=== PATIENT | female | born 1955 | race African-American/Black ===

== ENCOUNTER 2017-01-26 10:08 | Emergency (ER) | payer OTHER ==
[~2017-01-26] VITALS: Ht 162.6 cm; Wt 51.7 kg
[~2017-01-26 10:08] MED LIST: AGGRENOX 25 MG1 EACH PO; ATORVASTATIN CA10 M1 PO; ATORVASTATIN CA80 M1 PO; EPCLUSA 400 MG1 EACH PO; LIPITOR40 M1 PO; LISINOPRIL40 M1 PO; SERTRALINE HCL50 MG PO
--- NOTE | 2017-01-26 10:12 | ED MVC/FALL/TRAUMA COMPLAINT ---
History of Present Illness General Chief Complaint: Fall Stated Complaint: BIBA FALL Source: patient, family, old records, EMS Exam Limitations: no limitations Vital Signs & Intake/Output Vital Signs & Intake/Output Vital Signs Date Time Temp Pulse Resp B/P B/P Pulse O2 O2 Flow FiO2 Mean Ox Delivery Rate 01/26 1219 81 18 155/86 98 Room Air 01/26 1015 98.2 102 18 159/93 97 Room Air Allergies Coded Allergies: NO KNOWN ALLERGIES (08/22/16) Triage Nurses Notes Reviewed? yes Onset: Abrupt Duration: hour(s): (1), constant Timing: recent history Severity: mild Severity Numbers: 1 Injuries/Fall Location: no injury Method of Injury: fall Loss of Consciousness: no loss of consciousness No Modifying Factors: none Associated Symptoms: denies HPI: 61-year-old female presents to the ER for evaluation brought in by ambulance with her daughters after she was found on the ground in her kitchen. The patient states that just happens. She denies any prodromal dizziness lightheadedness prior to the fall on arrival the patient denies any complaints no chest pain abdominal pain or murmur leg injury however she has bruising noted to the left hip. She denies pain to her leg. Patient has a history of frequent falls and is noted that she was not using her cane while ambulating today. She is otherwise without any complaints. (JENNY SAMSON) Reconcile Medications Atorvastatin Calcium (Lipitor) 40 MG TABLET 1 TAB PO DAILY cholestrol Dipyridamole W/ Aspirin (Aggrenox 25 MG-200 MG Capsule) 25 MG-200 MG CPMP.12HR 1 CAP PO BID HEART HEALTH (Reported) Lisinopril 40 MG TABLET 1 TAB PO DAILY HTN (Reported) Sertraline HCl 50 MG TABLET 1 TAB PO DAILY MENTAL HEALTH (Reported) Sofosbuvir/Velpatasvir (Epclusa 400 MG-100 MG Tablet) 400 MG-100 MG TABLET 1 TAB PO QPM HCV (Reported) (QUINN MORRIS DO) Past History Travel History Traveled to [place] past 21 day No Medical History Any Pertinent Medical History? see below for history Neurological: CVA 2000, 2010 major ones multiple CVAs in between 2000 and 2010 EENT: NONE Cardiovascular: hypertension, hyperlipidemia Respiratory: NONE Gastrointestinal: NONE Hepatic: hepatitis C Renal: NONE Musculoskeletal: NONE Psychiatric: NONE Endocrine: NONE Blood Disorders: NONE Cancer(s): NONE TAX ECONOMIST/Reproductive: NONE History of MRSA: No History of VRE: No History of CDIFF: No Pneumonia Vaccine: 08/27/16 Influenza Vaccine: 08/27/16 Surgical History Surgical History: none Psychosocial History Who do you live with Family What is your primary language German Family History Hx Contributory? No (JENNY SAMSON) Review of Systems Review of Systems Constitutional: Reports: see HPI. All Other Systems: Reviewed and Negative Comments Review of systems: See HPI, All other systems negative. Constitutional, no chills no fever, no malaise no weight loss HEENT: No visual changes no sore throat no congestion, no ear pain Cardiovascular: No chest pain , no palpitation , Skin: no rashes, no change in skin Respiratory: No dyspnea no cough no sputum GI: No nausea no vomiting, no diarrhea, no bloating/constipation : No dysuria No hematuria, no frequency, no discharge Muscle skeletal: No joint pain, no joint swelling, no back pain, no neck pain, Neurologic: no headache Psych: No stress Heme/endocrine: No bruising no bleeding Immunology: No lymphadenopathy (JENNY SAMSON) Physical Exam Physical Exam General Appearance: well developed/nourished, alert, awake Comments: Well-developed well-nourished person in no acute distress HEENT: Normal EENT exam; PERRL, EOMI, no nystagmus. HEAD is atraumatic. moist mucous membranes. Neck: Supple, normal range of motion without pain or tenderness Back: Nontender, no CVA tenderness. Full range of motion Cardiovascular: Regular rate and rhythms no murmurs rubs or gallops, normal JVP Respiratory: Chest nontender.There were no bony deformities, no asymmetry. No respiratory distress. Patient speaking in full complete sentences. Breath sounds clear to auscultation bilaterally: NO W/R/R Abdomen: Soft, nontender nondistended, no appreciable organomegaly. Normal bowel sounds. No rebound/guarding, No appreciable enlargement of the abdominal aorta, No ascites. UPPER Extremity: No edema, full range of motion of extremities, normal and equal pulses bilaterally, 5 out of 5 extremities Hip: mild ecchymosis noted to the lateral L hip, nontender, Stable. FROM. No pain with pelvic compression Knee: Atraumatic/stable. FROM. No joint swelling, no effusion. No laxity. Negative sudeep/anterior drawer test. No pain with ROM Leg: Atraumatic. Nontender. No edema, 5 out of 5 strength in the lower extremity, normal dorsiflexion of great toe bilaterally, gross sensation is intact Ankle/Foot: Atraumatic/stable. Skin intact. FROM. No swelling, no effusion. No laxity on exam Pulses: Normal/equal DP/PT pulses bilaterally. Brisk cap refill Neuro: Alert oriented x3, motor sensory normal, cranial nerves II through XII grossly intact. There were no obvious focal neurologic abnormalities. Skin: No appreciable rash on exposed skin, skin is warm and dry. Psych: Mood and affect is normal, memory and judgment is normal. Core Measures ACS in differential dx? Yes Severe Sepsis Present: No Septic Shock Present: No (EDWARD LUJAN,JENNY) Progress Differential Diagnosis: C/T/L spine injury, ext injury, ICH, pelvis injury, spinal cord injury, uti, electrolyte abnormality Plan of Care: Orders Procedure Date/time Status Straight Cath 01/26 1241 Active CULTURE,URINE 01/26 1241 Active URINALYSIS 01/26 1021 Complete TROPONIN LEVEL 01/26 1021 Complete COMPREHENSIVE METABOLIC PANEL 01/26 1021 Complete CREATINE PHOSPHOKINASE 01/26 1021 Complete CBC WITHOUT DIFFERENTIAL 01/26 1021 Complete EKG 01/26 1021 Active Laboratory Tests 01/26/17 1251: Urine Color YEL, Urine Clarity CLEAR, Urine pH 6.5, Ur Specific [place] 1.015, Urine Protein 30 H, Urine Ketones NEG, Urine Nitrite NEG, Urine Bilirubin NEG, Urine Urobilinogen 0.2, Ur Leukocyte Esterase NEG, Ur Microscopic SEDIMENT EXAMINED, Urine RBC 1-3, Urine WBC RARE, Ur Epithelial Cells RARE, Urine Bacteria RARE H, Urine Mucus RARE, Urine Hemoglobin SMALL H, Urine Glucose NEG 01/26/17 1034: Anion Gap 13, Estimated GFR > 60, BUN/Creatinine Ratio 18.8, Glucose 118 H, Calcium 9.4, Total Bilirubin 0.5, AST 38 H, ALT 33, Alkaline Phosphatase 59, Creatine Kinase 874 H, Troponin I 0.04, Total Protein 7.4, Albumin 4.1, Globulin 3.3, Albumin/Globulin Ratio 1.2, CBC w Diff NO MAN DIFF REQ, RBC 3.84 L, MCV 91.4, MCH 30.5, RDW 14.0, MPV 8.3, Gran % 85.5 H, Lymphocytes % 8.5 L, Monocytes % 5.6, Eosinophils % 0.1, Basophils % 0.3, Absolute Granulocytes 7.5 H, Absolute Lymphocytes 0.7 L, Absolute Monocytes 0.5, Absolute Eosinophils 0, Absolute Basophils 0, PUBS MCHC 33.4 Microbiology 01/26 1251 URINE ROUT: Urine Culture - RECD Patient denies any complaints at this time resting comfortably CAT scans ordered case discussed with Dr. morris who agrees with plan Discussed with the patient and her family her CAT scan results, she is ambulatory with a walker here with steady gait feels well, the patient was seen and evaluated by dr morris who agrees with plan I discussed with the patient at length all of their results. I had an extensive conversation regarding need for close follow up with their primary care physician this week as well as return precautions. I answered all of their questions, they feel comfortable with the plan and follow-up care. I discussed the medications that they will receive with the patient. I gave them signs and symptoms that could indicate an adverse reaction. I have advised them to limit their activities until they can see how they respond to the medication. (EDWARD LUJAN,JENNY) Diagnostic Imaging: Viewed by Me: CT Scan. Discussed w/RAD: CT Scan. Radiology Impression: PATIENT: RG GAONA PRESENT AGE: 61 PATIENT ACCOUNT NO: [id number] : 54 LOCATION: [facility] ORDERING PHYSICIAN: JENNY LUJAN SERVICE DATE: 01/26/17 EXAM TYPE: CAT - CT ABD & PELVIS W/O IV CONTRAS; CT CHEST WO IV CONTRAST EXAMINATION: CT CHEST, ABDOMEN AND PELVIS WITHOUT IV CONTRAST CLINICAL INFORMATION: Trauma COMPARISON: Previous chest x-ray August 2016. TECHNIQUE: Axial images through the chest, abdomen and pelvis without IV contrast obtained. Sagittal and coronal reconstructions on the technologist's workstation were obtained. DLP: 307 mGy- cm. FINDINGS: CHEST: The lungs are clear. There is no pleural effusion or pneumothorax. No enlarged lymph nodes are seen. The heart does not appear enlarged. There is a small pericardial effusion. The thoracic aorta is normal in caliber. No chest wall mass or axillary adenopathy is seen. Evaluation of solid organs is limited due to lack of IV contrast. The liver, spleen, pancreas, adrenal glands and right kidney are unremarkable. There is a small left lower pole renal stone measuring 1 to 2 mm. There is stool throughout the colon. There is evidence of diverticulosis. Small and large bowel is otherwise unremarkable. The appendix is normal. The bladder is normal. The uterus appears enlarged. No ascites or free air is seen. No adenopathy is seen. The abdominal aorta is normal in caliber. No hernia is seen. No fracture or dislocation is seen. The bones appear osteopenic. IMPRESSION: Limited exam due to lack of IV contrast. No evidence for acute disease in the chest, abdomen or pelvis. Small left renal stone. Diverticulosis. Enlarged uterus. This could be better evaluated with pelvic ultrasound. DICTATED BY: EPHRAIM LANDIN MD. DATE/TIME DICTATED:01/26/171148 LANDSCAPE DESIGNER:FRANSISCO DATE/TIME TRANSCRIBED:01/26/171148 CONFIDENTIAL, DO NOT COPY WITHOUT APPROPRIATE AUTHORIZATION. <Electronically signed in Other Vendor System> SIGNED BY: EPHRAIM LANDIN MD 01/26/17 1210 , PATIENT: RG GAONA PRESENT AGE: 61 PATIENT ACCOUNT NO: [id number] : 54 LOCATION: [facility] ORDERING PHYSICIAN: JENNY LUJAN SERVICE DATE: 01/26/17 EXAM TYPE: CAT - CT CERV SPINE WO IV CONTRAST EXAMINATION: CT CERVICAL SPINE WITHOUT CONTRAST CLINICAL INFORMATION: Fall. Trauma. COMPARISON: None. TECHNIQUE: Axial images through the cervical spine without contrast. Sagittal and coronal reconstructions on the technologist workstation were performed. DLP: 868 mGy-cm for combined CT of the head and cervical spine. FINDINGS: There is curvature of the lower cervical spine to the left. Bone alignment is otherwise normal. No fracture or dislocation is seen. There is multilevel degenerative spondylosis and degenerative disc disease from C3-C4 to C6-C7. There is heterogeneous attenuation to the bones with multiple lucent areas, probably representing osteopenia. Prevertebral soft tissues are normal. There is right carotid calcification. IMPRESSION: No fracture or dislocation seen. Multilevel degenerative spondylosis and degenerative disc disease from C3-C4 to C6-C7. DICTATED BY: EPHRAIM LANDIN MD DATE/TIME DICTATED :01/26/171154 LANDSCAPE DESIGNER:JUNIOR DATE/TIME TRANSCRIBED:01/26/171154 CONFIDENTIAL, DO NOT COPY WITHOUT APPROPRIATE AUTHORIZATION. < Electronically signed in Other Vendor System> SIGNED BY: EPHRAIM LANDIN MD 01/26/17 1210, PATIENT: RG GAONA PRESENT AGE: 61 PATIENT ACCOUNT NO: [id number] : 54 LOCATION: [facility] ORDERING PHYSICIAN: JENNY LUJAN SERVICE DATE: 01/26/17 EXAM TYPE: CAT - CT HEAD WO IV CONTRAST EXAMINATION: CT HEAD WITHOUT CONTRAST CLINICAL INFORMATION: Trauma. Evaluate for intracranial hemorrhage. COMPARISON: CT scan of the head dated 07/2016. MRI scan of the head dated 08/23/2016. TECHNIQUE: Contiguous axial imaging was performed from the skull base to vertex without intravenous administration of contrast. DLP: 868.44 mGy-cm this includes the dose report for the cervical spine CT scan. FINDINGS: There is no evidence of acute intracranial hemorrhage or territorial infarction. No abnormal mass effect or midline shift is seen. Izquierdo to white matter differentiation is well preserved. No extra-axial fluid collections are identified. The ventricles and sulci are mildly increased in size, consistent with involutional changes. As seen previously, there is extensive periventricular deep white matter low-attenuation seen, consistent with ischemic small vessel disease. Superimposed multifocal small old lacunar infarctions are seen, involving both basal ganglia, thalami, centra semiovale. The osseous structures and soft tissues are normal. The mastoid air cells and visualized portions of the paranasal sinuses are well aerated. IMPRESSION: 1. No evidence of acute intracranial hemorrhage or other acute intracranial process. 2. Extensive periventricular deep white matter ischemic small vessel disease and multifocal bilateral old lacunar infarctions, unchanged from prior study. DICTATED BY: SAMM SOW MD DATE/TIME DICTATED:01/26/171148 LANDSCAPE DESIGNER:FRANSISCO DATE/TIME TRANSCRIBED:01/26/171148 CONFIDENTIAL, DO NOT COPY WITHOUT APPROPRIATE AUTHORIZATION. <Electronically signed in Other Vendor System> SIGNED BY: SAMM SOW MD 01/26/17 121 Initial ED EKG: NSR AT 90, NO ACUTE ST SEG CHANGES, NORMAL AXIS Prior EKG: unchanged (08/2016) (EDWARD LUJAN,JENNY) Departure Departure Time of Disposition: 1333 Disposition: HOME OR SELF CARE Condition: Stable Clinical Impression Primary Impression: Fall Referrals: TULIO PEARCE APRN (PCP/Family) Additional Instructions: USE YOUR WALKER OR CANE WHENEVER YOU ARE MOVING AROUND. FOLLOW UP WITH YOUR PMD THIS WEEK, RETURN TO THE ER WITH ANY CONCERNS Departure Forms: Customer Survey General Discharge Information (JENNY SAMSON) PA/CLINICAL SYSTEMS ANALYST Co-Sign Statement Statement: ED Attending supervision documentation- [x] I saw and evaluated the patient. I have also reviewed all the pertinent lab results and diagnostic results. I agree with the findings and the plan of care as documented in the PA's/CLINICAL SYSTEMS ANALYST's documentation. [] I have reviewed the ED Record and agree with the PA's/CLINICAL SYSTEMS ANALYST's documentation. [] Additions or exceptions (if any) to the PAs/CLINICAL SYSTEMS ANALYST's note and plan are summarized below: [] (QUINN MORRIS DO
[2017-01-26 10:54] LABS: ABSOLUTE BASOPHIL COUNT 0 /CUMM (0.0-0.2); ABSOLUTE EOSINOPHIL COUNT 0 /CUMM (0.0-0.7); ABSOLUTE GRANULOCYTE CT 7.5 /CUMM (1.4-6.5); ABSOLUTE LYMPH COUNT 0.7 /CUMM (1.2-3.4); ABSOLUTE MONOCYTE COUNT 0.5 /CUMM (0.10-0.60); BASOPHIL % 0.3 % (0.0-2.0); EOSINOPHIL % 0.1 % (0-5); HEMATOCRIT 35.2 % (37-47); MEAN CORPUSCULAR HGB 30.5 PG (27.0-31.0); MEAN CORPUSCULAR HGB CONC 33.4 G/DL (33.0-37.0); MEAN CORPUSCULAR VOLUME 91.4 FL (81.0-99.0); MEAN PLATELET VOLUME 8.3 FL (7.4-10.4); PLATELET COUNT 243 /CUMM (130-400); RED BLOOD CELL CT 3.84 /CUMM (4.20-5.40); WHITE BLOOD CELL COUNT 8.8 /CUMM (4.8-10.8)
[2017-01-26 11:13] LABS: GRANULOCYTE % 85.5 % (42.2-75.2)
--- NOTE | 2017-01-26 12:10 | CT SCAN REPORT ---
EXAMINATION: CT CERVICAL SPINE WITHOUT CONTRAST CLINICAL INFORMATION: Fall. Trauma. COMPARISON: None. TECHNIQUE: Axial images through the cervical spine without contrast. Sagittal and coronal reconstructions on the technologist workstation were performed. DLP: 868 mGy-cm for combined CT of the head and cervical spine. FINDINGS: There is curvature of the lower cervical spine to the left. Bone alignment is otherwise normal. No fracture or dislocation is seen. There is multilevel degenerative spondylosis and degenerative disc disease from C3-C4 to C6-C7. There is heterogeneous attenuation to the bones with multiple lucent areas, probably representing osteopenia. Prevertebral soft tissues are normal. There is right carotid calcification. IMPRESSION: No fracture or dislocation seen. Multilevel degenerative spondylosis and degenerative disc disease from C3-C4 to C6-C7.
--- NOTE | 2017-01-26 12:10 | CT SCAN REPORT ---
EXAMINATION: CT CHEST, ABDOMEN AND PELVIS WITHOUT IV CONTRAST CLINICAL INFORMATION: Trauma COMPARISON: Previous chest x-ray August 2016. TECHNIQUE: Axial images through the chest, abdomen and pelvis without IV contrast obtained. Sagittal and coronal reconstructions on the technologist's workstation were obtained. DLP: 307 mGy-cm. FINDINGS: CHEST: The lungs are clear. There is no pleural effusion or pneumothorax. No enlarged lymph nodes are seen. The heart does not appear enlarged. There is a small pericardial effusion. The thoracic aorta is normal in caliber. No chest wall mass or axillary adenopathy is seen. Evaluation of solid organs is limited due to lack of IV contrast. The liver, spleen, pancreas, adrenal glands and right kidney are unremarkable. There is a small left lower pole renal stone measuring 1 to 2 mm. There is stool throughout the colon. There is evidence of diverticulosis. Small and large bowel is otherwise unremarkable. The appendix is normal. The bladder is normal. The uterus appears enlarged. No ascites or free air is seen. No adenopathy is seen. The abdominal aorta is normal in caliber. No hernia is seen. No fracture or dislocation is seen. The bones appear osteopenic. IMPRESSION: Limited exam due to lack of IV contrast. No evidence for acute disease in the chest, abdomen or pelvis. Small left renal stone. Diverticulosis. Enlarged uterus. This could be better evaluated with pelvic ultrasound.
--- NOTE | 2017-01-26 12:13 | CT SCAN REPORT ---
EXAMINATION: CT HEAD WITHOUT CONTRAST CLINICAL INFORMATION: Trauma. Evaluate for intracranial hemorrhage. COMPARISON: CT scan of the head dated 08/22/2016. MRI scan of the head dated 08/23/2016. TECHNIQUE: Contiguous axial imaging was performed from the skull base to vertex without intravenous administration of contrast. DLP: 868.44 mGy-cm this includes the dose report for the cervical spine CT scan. FINDINGS: There is no evidence of acute intracranial hemorrhage or territorial infarction. No abnormal mass effect or midline shift is seen. Izquierdo to white matter differentiation is well preserved. No extra-axial fluid collections are identified. The ventricles and sulci are mildly increased in size, consistent with involutional changes. As seen previously, there is extensive periventricular deep white matter low-attenuation seen, consistent with ischemic small vessel disease. Superimposed multifocal small old lacunar infarctions are seen, involving both basal ganglia, thalami, centra semiovale. The osseous structures and soft tissues are normal. The mastoid air cells and visualized portions of the paranasal sinuses are well aerated. IMPRESSION: 1. No evidence of acute intracranial hemorrhage or other acute intracranial process. 2. Extensive periventricular deep white matter ischemic small vessel disease and multifocal bilateral old lacunar infarctions, unchanged from prior study.
[2017-01-26 12:19] VITALS: BP 155/86
== END 2017-01-26 13:52 ==
LOC: ERH 10:08
PROVIDERS: Physician Assistant Medical
DX: Z04.3 Encounter for examination and observation following other accident (principal); I10 Essential (primary) hypertension; W19.XXXA Unspecified fall, initial encounter; Y93.9 Activity, unspecified; Y92.000 Kitchen of unspecified non-institutional (private) residence as the place of occurrence of the external cause
CPT/HCPCS: 74176; 81001; 87086; 93005; 93010

== ENCOUNTER 2017-12-27 14:27 | Emergency (ER) | payer OTHER ==
--- NOTE | 2017-12-27 14:43 | ED MVC/FALL/TRAUMA COMPLAINT ---
See Addendum History of Present Illness General Chief Complaint: Fall Stated Complaint: UNWITNESSED FALL IN BR Source: patient Exam Limitations: no limitations Vital Signs & Intake/Output Vital Signs & Intake/Output Vital Signs Date Time Temp Pulse Resp B/P B/P Pulse O2 O2 Flow FiO2 Mean Ox Delivery Rate 12/27 1832 Room Air 12/27 1700 79 18 188/88 99 Room Air 12/27 1428 98.6 98 18 162/98 99 Room Air Allergies Coded Allergies: NO KNOWN ALLERGIES (08/22/16) Reconcile Medications Atorvastatin Calcium (Lipitor) 40 MG TABLET 1 TAB PO DAILY cholestrol Dipyridamole W/ Aspirin (Aggrenox 25 MG-200 MG Capsule) 25 MG-200 MG CPMP.12HR 1 CAP PO BID HEART HEALTH (Reported) Lisinopril 40 MG TABLET 1 TAB PO DAILY HTN (Reported) Sertraline HCl 50 MG TABLET 1 TAB PO DAILY MENTAL HEALTH (Reported) Sofosbuvir/Velpatasvir (Epclusa 400 MG-100 MG Tablet) 400 MG-100 MG TABLET 1 TAB PO QPM HCV (Reported) Triage Note: PT BIBA FROM HOME AFTER SHE FELL IN THE BATHROOM. PT HAD UNWITNESSED FALL WHILE IN THE BR. PT DENIES PAIN. PT HAD CVA WITH LEFT SIDED WEAKNESS. FAMILY AT BEDSIDE NO DISTRESS NOTED. PT WAITING FOR PROVIDER EVAL Triage Nurses Notes Reviewed? yes Onset: Just prior to arrival Duration: minute(s): Timing: remote history Severity: mild Injuries/Fall Location: ?HEAD STRIKE Method of Injury: fall Loss of Consciousness: unsure No Modifying Factors: none HPI: Patient is a 62-year-old female with history of recent CVA, on Aggrenox presenting with family members with chief complaint of fall the bathroom prior to arrival. fall was unwitnessed. Patient reports that she was in the bathroom. Family reports that she left for a few minutes and then the granddaughter found her on the ground in the bathroom. Unsure exactly how she fell. Family reports that she was on the floor for less than 10 minutes. Patient denies any pain. No chest pain or palpitations. Patient denying any headaches. Denies any vision changes. Patient denies abdominal pain. (Lori LUJAN,Taylor) Past History Travel History Traveled to [place] past 21 day No Medical History Any Pertinent Medical History? see below for history Neurological: CVA 2000, 2010 major ones multiple CVAs in between 2000 and 2010 EENT: NONE Cardiovascular: hypertension, hyperlipidemia Respiratory: NONE Gastrointestinal: NONE Hepatic: hepatitis C Renal: NONE Musculoskeletal: NONE Psychiatric: NONE Endocrine: NONE Blood Disorders: NONE Cancer(s): NONE PRODUCT SAFETY SPECIALIST/Reproductive: NONE History of MRSA: No History of VRE: No History of CDIFF: No Surgical History Surgical History: none Psychosocial History Who do you live with Family What is your primary language Polish Tobacco Use: Never used ETOH Use: denies use Illicit Drug Use: denies illicit drug use Family History Hx Contributory? No (Taylor Knowles) Review of Systems Review of Systems Constitutional: Reports: no symptoms. Comments Review of systems: See HPI, All other systems negative. Constitutional, no chills fever or weight loss HEENT: No visual changes no sore throat no congestion Cardiovascular: No chest pain ,palpitation , orthopnea or ankle swelling Skin, no jaundice no rashes Respiratory: No dyspnea cough sputum or hemoptysis GI: No nausea no vomiting : No dysuria No hematuria Muscle skeletal: no back pain, no neck pain, Neurologic: No numbness no INCREASED confusion Psych: No stress anxiety or depression,. Heme/endocrine: No bruising no bleeding no polyuria or polydipsia Immunology: No splenectomy or history of AIDS (Taylor Knowles) Physical Exam Physical Exam General Appearance: well developed/nourished, no apparent distress, alert, awake , comfortable Comments: THIN person in no acute distress HEENT: extraocular motion intact, no nystagmus. Pupils equally round and reactive to light and accommodation. Nose is atraumatic. External auditory canal and Tympanic membranes clear. Pharynx normal. No swelling or edema. No palpable step-off deformities or hematomas noted over the entire scalp. Neck: Supple, no lymphadenopathy, normal range of motion without pain or tenderness, no C-spine tenderness. Back: Nontender, no palpable tenderness over the cervical, thoracic or lumbar spine. No crepitus. No step-off deformities. Cardiovascular: Regular rate and rhythms no murmurs rubs or gallops, normal JVP Respiratory: Chest nontender. No respiratory distress.breath sounds clear to auscultation bilaterally Abdomen: Soft, nontender nondistended, no appreciable organomegaly. Normal bowel sounds. No ascites, no rebound or guarding. Extremity: No edema, no calf tenderness to palpation, normal and equal pulses. Muscular strength is 5 out of 5 in upper and lower extremities. Tank Shop Supervisor strength is equal and symmetric bilaterally. Neuro: Alert oriented to person and place, motor sensory normal, cranial nerves II through XII grossly intact, patient has residual expressive aphasia when trying to speak. Otherwise cranial nerves are intact. Patellar reflexes are 1+ bilaterally. No facial droop. Skin: No appreciable rash on exposed skin, skin is warm and dry. Psych: Mood and affect is normal, smiles, cooperative ,memory and judgment is normal. Core Measures ACS in differential dx? Yes CVA/TIA Diagnosis No Sepsis Present: No Sepsis Focused Exam Completed? No (Lori LUJAN,Taylor) Progress Differential Diagnosis: INTRACRANIAL HEMORRHAGE, MINOR HEAD INJURY, MULTIFACTORIAL GAIT DISORDER, ELECTROLYTE ABNORMALITY, cva, tia Plan of Care: Orders Procedure Date/time Status Heart Healthy Diet 12/27 L Active Add-on Test (ER Only) 12/27 1459 Active MISTAKE 12/27 1459 Active TROPONIN LEVEL 12/27 1456 Complete COMPREHENSIVE METABOLIC PANEL 12/27 1456 Complete CREATINE PHOSPHOKINASE 12/27 1456 Complete CBC WITHOUT DIFFERENTIAL 12/27 1456 Complete EKG 12/27 1431 Active Laboratory Tests 12/27/17 1529: Anion Gap 11, Estimated GFR > 60, BUN/Creatinine Ratio 18.6, Glucose 89, Calcium 9.4, Total Bilirubin 0.6, AST 22, ALT 31, Alkaline Phosphatase 68, Creatine Kinase 99, Troponin I < 0.01, Total Protein 7.8, Albumin 4.1, Globulin 3.7, Albumin/Globulin Ratio 1.1, CBC w Diff NO MAN DIFF REQ, RBC 3.84 L, MCV 92.4, MCH 30.7, MCHC 33.2, RDW 14.4, MPV 7.7, Gran % 72.2, Lymphocytes % 19.9 L, Monocytes % 6.9, Eosinophils % 0.7, Basophils % 0.3, Absolute Granulocytes 4.5, Absolute Lymphocytes 1.2, Absolute Monocytes 0.4, Absolute Eosinophils 0, Absolute Basophils 0 12/27/2017 4:41:39 PM patient ambulates with STEADY GAIT WITH ROLLING WALKER. We will trial her with a rolling walker. 12/27/2017 6:38:40 PM patient unable to ambulate with rolling walker secondary to weakness. Patient will be a hold OVER, PT evaluation in the morning. Likely rehabilitation placement pending recommendations made by physical therapy. Patient will be signed out to Dr. Castillo pending holdover. Diagnostic Imaging: Viewed by Me: Radiology Read, CT Scan. Discussed w/RAD: Radiology Read, CT Scan. Radiology Impression: PATIENT: RG GAONA PRESENT AGE: 62 PATIENT ACCOUNT NO: [id number] : 54 LOCATION: [facility] ORDERING PHYSICIAN: Taylor LUJAN SERVICE DATE: 12/27/17 EXAM TYPE: CAT - CT CERV SPINE WO IV CONTRAST; CT HEAD WO IV CONTRAST EXAMINATION: CT HEAD WITHOUT CONTRAST CT CERVICAL SPINE WITHOUT CONTRAST CLINICAL INFORMATION: Head strike. Rule out fracture. COMPARISON: Head CT from 01/26/2017. TECHNIQUE: Contiguous axial imaging was performed from the skullbase to vertex without intravenous administration of contrast. Multidetector helical imaging was performed through the cervical spine. DLP: 907.4 mGy-cm. FINDINGS: HEAD: There is no evidence of acute intracranial hemorrhage or territorial infarction. No abnormal mass effect or midline shift is seen. Izquierdo to white matter differentiation is well preserved. No extra-axial fluid collections are identified. Diffuse parenchymal volume loss is noted. Severe chronic white matter microangiopathic changes are again noted with chronic infarcts in the basal ganglia and thalami bilaterally. The osseous structures and soft tissues are normal. The mastoid air cells are well aerated. There is mild mucosal thickening in the maxillary sinuses. CERVICAL SPINE: No acute fracture or dislocation is identified in the cervical spine. Significant multilevel disc space narrowing is evident with endplate osteophyte formation. The atlantoaxial articulation is normally maintained. The thyroid gland is heterogeneous but not enlarged. The paraspinal soft tissues are normal. The lung apices are clear. IMPRESSION: 1. No acute intracranial pathology. Severe chronic white matter microangiopathy and chronic deep izquierdo matter lacunar infarcts. 2. No evidence of acute cervical spine traumatic injury. Severe cervical spondylosis. DICTATED BY: Shoaib Arroyo MD DATE/TIME DICTATED:12/27/171518 TRANSPORTATION EQUIPMENT PAINTER:FRANSISCO DATE/TIME TRANSCRIBED:12/27/171518 CONFIDENTIAL, DO NOT COPY WITHOUT APPROPRIATE AUTHORIZATION. <Electronically signed in Other Vendor System> SIGNED BY: Shoaib Arroyo MD 12/27/178, PATIENT: RG GAONA PRESENT AGE: 62 PATIENT ACCOUNT NO: [id number] : 54 LOCATION: [facility] ORDERING PHYSICIAN: Taylor LUJAN SERVICE DATE: 12/27/17559 EXAM TYPE: RAD - XRY-PORTABLE CHEST XRAY EXAMINATION: XR PORTABLE CHEST CLINICAL INFORMATION: Trauma. Presumptive diagnosis: Cardiomegaly. COMPARISON: CT the chest on 01/26/2017. Portable chest x-ray on 08/25/2016. TECHNIQUE: Portable AP semierect view of the chest was obtained. FINDINGS: No significant abnormality is noted involving the lungs, mediastinum, bony thorax or soft tissues. The heart is borderline enlarged. IMPRESSION: Heart borderline enlarged. No acute disease. DICTATED BY: Ernesto Goodman MD DATE/TIME DICTATED :12/27/171535 TRANSPORTATION EQUIPMENT PAINTER:JUNIOR DATE/TIME TRANSCRIBED:12/27/171535 CONFIDENTIAL, DO NOT COPY WITHOUT APPROPRIATE AUTHORIZATION. < Electronically signed in Other Vendor System> SIGNED BY: Ernesto Goodman MD 12/27/17 1543, PATIENT: RG GAONA PRESENT AGE: 62 PATIENT ACCOUNT NO: [id number] : 54 LOCATION: [facility] ORDERING PHYSICIAN: Taylor LUJAN SERVICE DATE: 12/27/17 EXAM TYPE: RAD - XRY-AP PELVIS EXAMINATION: XR PELVIS CLINICAL INFORMATION: Difficulty ambulating. COMPARISON: None TECHNIQUE: AP view of the pelvis. FINDINGS: No evidence of acute fracture or dislocation on this single view. There are degenerative changes of the distal lumbar spine and SI joints, largely obscured by overlying air and stool in the colon. Mild degenerative changes of the pubic symphysis and hips. The bowel gas pattern is nonobstructive. There are faint vascular calcifications and probable phleboliths in the pelvis. IMPRESSION: No evidence of fracture or dislocation on this single view of the pelvis. DICTATED BY: Nathanael Torres MD DATE/TIME DICTATED:12/27/171802 TRANSPORTATION EQUIPMENT PAINTER: JUNIOR DATE/TIME TRANSCRIBED:12/27/171802 CONFIDENTIAL, DO NOT COPY WITHOUT APPROPRIATE AUTHORIZATION. <Electronically signed in Other Vendor System> SIGNED BY: Nathanael Torres MD 12/27/17 4239 Initial ED EKG: SINUS RHYTHM AT 87 BPM,NO ACUTE CHANGES FROM PREVIOUS Hand-Off Endorsed To: Quintin Castillo DO Endorsed Time: 1999 Pending: consult (Taylor Knowles) Departure Departure Disposition: OTHER [facility] (ACUTE) Condition: Stable Clinical Impression Primary Impression: Fall Qualifiers: Encounter type: initial encounter Qualified Code: W19.XXXA - Unspecified fall, initial encounter Secondary Impressions: Minor head injury Qualifiers: Encounter type: initial encounter Qualified Code: S09.90XA - Unspecified injury of head, initial encounter Referrals: June Rendon APRN (PCP/Family) Additional Instructions: Follow-up with the primary care physician also make an appointment next 5-7 days. Take [id number] Tylenol as directed for any aches or pains. Return for worsening symptoms or concerns. Departure Forms: Customer Survey General Discharge Information (Taylor Knowles) PA/CERAMICS TEST ENGINEER Co-Sign Statement Statement: ED Attending supervision documentation- [X] I saw and evaluated the patient. I have also reviewed all the pertinent lab results and diagnostic results. I agree with the findings and the plan of care as documented in the PA's/CERAMICS TEST ENGINEER's documentation. [] I have reviewed the ED Record and agree with the PA's/CERAMICS TEST ENGINEER's documentation. [] Additions or exceptions (if any) to the PAs/CERAMICS TEST ENGINEER's note and plan are summarized below: [] Presently confused. No acute distress. There were unable to ambulate her. (Quintin Castillo DO)
[2017-12-27 15:37] LABS: ABSOLUTE BASOPHIL COUNT 0 /CUMM (0.0-0.2); ABSOLUTE EOSINOPHIL COUNT 0 /CUMM (0.0-0.7); ABSOLUTE GRANULOCYTE CT 4.5 /CUMM (1.4-6.5); ABSOLUTE LYMPH COUNT 1.2 /CUMM (1.2-3.4); ABSOLUTE MONOCYTE COUNT 0.4 /CUMM (0.10-0.60); BASOPHIL % 0.3 % (0.0-2.0); EOSINOPHIL % 0.7 % (0-5); GRANULOCYTE % 72.2 % (42.2-75.2); HEMATOCRIT 35.5 % (37-47); MEAN CORPUSCULAR HGB 30.7 PG (27.0-31.0); MEAN CORPUSCULAR HGB CONC 33.2 G/DL (33.0-37.0); MEAN CORPUSCULAR VOLUME 92.4 FL (81.0-99.0); MEAN PLATELET VOLUME 7.7 FL (7.4-10.4); PLATELET COUNT 243 /CUMM (130-400); RBC DISTRIBUTION WIDTH 14.4 % (11.5-14.5); RED BLOOD CELL CT 3.84 /CUMM (4.20-5.40); WHITE BLOOD CELL COUNT 6.2 /CUMM (4.8-10.8)
--- NOTE | 2017-12-27 15:38 | CT SCAN REPORT ---
EXAMINATION: CT HEAD WITHOUT CONTRAST CT CERVICAL SPINE WITHOUT CONTRAST CLINICAL INFORMATION: Head strike. Rule out fracture. COMPARISON: Head CT from 01/26/2017. TECHNIQUE: Contiguous axial imaging was performed from the skullbase to vertex without intravenous administration of contrast. Multidetector helical imaging was performed through the cervical spine. DLP: 907.4 mGy-cm. FINDINGS: HEAD: There is no evidence of acute intracranial hemorrhage or territorial infarction. No abnormal mass effect or midline shift is seen. Izquierdo to white matter differentiation is well preserved. No extra-axial fluid collections are identified. Diffuse parenchymal volume loss is noted. Severe chronic white matter microangiopathic changes are again noted with chronic infarcts in the basal ganglia and thalami bilaterally. The osseous structures and soft tissues are normal. The mastoid air cells are well aerated. There is mild mucosal thickening in the maxillary sinuses. CERVICAL SPINE: No acute fracture or dislocation is identified in the cervical spine. Significant multilevel disc space narrowing is evident with endplate osteophyte formation. The atlantoaxial articulation is normally maintained. The thyroid gland is heterogeneous but not enlarged. The paraspinal soft tissues are normal. The lung apices are clear. IMPRESSION: 1. No acute intracranial pathology. Severe chronic white matter microangiopathy and chronic deep izquierdo matter lacunar infarcts. 2. No evidence of acute cervical spine traumatic injury. Severe cervical spondylosis.
--- NOTE | 2017-12-27 15:43 | RADIOLOGY REPORT ---
EXAMINATION: XR PORTABLE CHEST CLINICAL INFORMATION: Trauma. Presumptive diagnosis: Cardiomegaly. COMPARISON: CT the chest on 01/26/2017. Portable chest x-ray on 08/25/2016. TECHNIQUE: Portable AP semierect view of the chest was obtained. FINDINGS: No significant abnormality is noted involving the lungs, mediastinum, bony thorax or soft tissues. The heart is borderline enlarged. IMPRESSION: Heart borderline enlarged. No acute disease.
--- NOTE | 2017-12-27 18:08 | RADIOLOGY REPORT ---
EXAMINATION: XR PELVIS CLINICAL INFORMATION: Difficulty ambulating. COMPARISON: None TECHNIQUE: AP view of the pelvis. FINDINGS: No evidence of acute fracture or dislocation on this single view. There are degenerative changes of the distal lumbar spine and SI joints, largely obscured by overlying air and stool in the colon. Mild degenerative changes of the pubic symphysis and hips. The bowel gas pattern is nonobstructive. There are faint vascular calcifications and probable phleboliths in the pelvis. IMPRESSION: No evidence of fracture or dislocation on this single view of the pelvis.
[2017-12-28 20:39] VITALS: BP 146/76
== END 2017-12-28 21:45 ==
LOC: ERH 14:27
PROVIDERS: Physician Assistant
DX: S09.90XA Unspecified injury of head, initial encounter (principal); W19.XXXA Unspecified fall, initial encounter; Y92.89 Other specified places as the place of occurrence of the external cause; Y93.89 Activity, other specified; I10 Essential (primary) hypertension; E78.5 Hyperlipidemia, unspecified
CPT/HCPCS: 71045; 72170; 93005; 93010; 97110-GP; 97162-GP

== ENCOUNTER 2018-04-28 16:31 | Inpatient (IN) | payer OTHER ==
[~2018-04-28] VITALS: Ht 157.5 cm; Wt 46.3 kg
--- NOTE | 2018-04-28 16:34 | ED AMS/SEIZURE/WEAK/DIZZY ---
History of Present Illness General Chief Complaint: Altered Mental Status Stated Complaint: BIBA AMS Source: family Exam Limitations: unable to give history, not alert/orientated, dementia Vital Signs & Intake/Output Vital Signs & Intake/Output Vital Signs Date Time Temp Pulse Resp B/P B/P Pulse O2 O2 Flow FiO2 Mean Ox Delivery Rate 04/28 1809 204/100 04/28 1649 96 Room Air 04/28 1645 98.9 18 220/108 97 Room Air Allergies Coded Allergies: NO KNOWN ALLERGIES (08/22/16) Reconcile Medications Atorvastatin Calcium (Lipitor) 40 MG TABLET 1 TAB PO DAILY cholestrol Dipyridamole W/ Aspirin (Aggrenox 25 MG-200 MG Capsule) 25 MG-200 MG CPMP.12HR 1 CAP PO BID HEART HEALTH (Reported) Lisinopril 40 MG TABLET 1 TAB PO DAILY HTN (Reported) Sertraline HCl 50 MG TABLET 1 TAB PO DAILY MENTAL HEALTH (Reported) Triage Nurses Notes Reviewed? yes HPI: 62 year old female with history of vascular dementia, s/p multiple previous CVA' s with residual RLE weakness and slurring of speech, on Aggrenox at home, received tPA in October of this year s/p stroke. She presents with further weakness of her lower extremities, especially the RLE and found at home to be leaning to her left side, with diminished speech. She was last known well last evening, and her daughter found her at home this morning around 10am with the aforementioned symptoms. The patient's daughter reported that she took her Lisinopril this morning, and in the setting of possible stroke/TIA it was elected to allow permissive hypertension, with continued observation of the blood pressure and consider treatment if the BP should remain elevated. The patient also passed a bedside swallow evaluation upon initial assessment. (Neftali PHELPS,Dejuan) Past History Travel History Traveled to [place] past 21 day No Medical History Any Pertinent Medical History? see below for history Neurological: CVA 2000, 2010 major ones multiple CVAs in between 2000 and 2010 EENT: NONE Cardiovascular: hypertension, hyperlipidemia Respiratory: NONE Gastrointestinal: NONE Hepatic: hepatitis C Renal: NONE Musculoskeletal: NONE Psychiatric: NONE Endocrine: NONE Blood Disorders: NONE Cancer(s): NONE DATABASES COMPUTER CONSULTANT/Reproductive: NONE History of MRSA: No History of VRE: No History of CDIFF: No Surgical History Surgical History: none Psychosocial History Who do you live with Family What is your primary language Dominican Family History Hx Contributory? No (Dejuan Lindsay MD) Review of Systems Review of Systems Constitutional: Reports: see HPI. Neurological/Psychological: Reports: dementia, headache. (Dejuan Lindsay MD) Review of Systems Constitutional: Reports: see HPI. EENTM: Reports: no symptoms. Respiratory: Reports: no symptoms. Cardiovascular: Reports: no symptoms. GI: Reports: no symptoms. Genitourinary: Reports: no symptoms. Musculoskeletal: Reports: no symptoms. Skin: Reports: no symptoms. Neurological/Psychological: Reports: see HPI. Hematologic/Endocrine: Reports: no symptoms. Immunologic/Allergic: Reports: no symptoms. All Other Systems: Reviewed and Negative (Inna PHELPS,Shoaib Bradley) Physical Exam Physical Exam General Appearance: well developed/nourished, no apparent distress, awake Cardiovascular: regular rate/rhythm, systolic murmur Neurologic/Psych: awake, alert, motor weakness (RLE ), Oriented to person and place Core Measures ACS in differential dx? No CVA/TIA Diagnosis Yes NIH Stroke Scale (24 Hours) NIH Stroke Scale (24 Hours) Response Value Level of Consciousness alert 0 Best Gaze normal 0 Visual Eugene no visual loss 0 Facial Paresis normal 0 Total 0 Date Last Known Well 04/27/18 Time Last Known Well 1999 Symptom start date 04/28/18 Symptom start time 0900 tPA Risk/Benefit discussion I have discussed the risks, benefits, and alternatives of Alteplase treatment including: - If given promptly, can resolve or have major improvement in stroke symptoms. - Bleeding (hemorrhage) is the most common risk that can occur. - Bleeding may occur into the brain and cause~senior care serious disability~ including - this is rare, affecting about 1% of patients. - Alternative treatments with proven benefit for patients with stroke include aspirin and care in a specialized unit where staff members pay careful attention to a variety of basic aspects of care. tPA given? No Reason tPA not given Medical Contraindication (Outside of window period) Swallow Evaluation Pass Swallow eval date 04/28/18 Swallow eval time 1800 Sepsis Present: No Sepsis Focused Exam Completed? No (Dejuan Lindsay MD) Physical Exam Head: atraumatic Eyes: Bilateral: PERRL. Ears, Nose, Throat: normal pharynx Neck: normal inspection, supple Respiratory: normal breath sounds, chest non-tender, no respiratory distress, lungs clear Gastrointestinal: normal bowel sounds, soft, non-tender Extremities: normal range of motion (Inna PHELPS,Shoaib Bradley) Progress Differential Diagnosis: CVA/stroke, dehydration, intracranial Hem., UTI/pyelo Plan of Care: Orders Procedure Date/time Status Regular Diet 04/29 B Active BASIC ELECTROLYTES PLUS BUN&CR 04/29 0000 Active Patient Data 04/28 1901 Active SWALLOW EVALUATION 04/28 185 Active Misc Message 04/28 185 Active ED Holding Orders 04/28 1851 Active Admit to inpatient 04/28 1851 Active Vital Signs 04/28 1851 Active MRI-HEAD W/O KOLBY 04/28 1851 Active Code Status 04/28 1851 Active EKG 04/28 1724 Active Intake & Output 04/28 164 Active URINALYSIS 04/28 164 Active COMPREHENSIVE METABOLIC PANEL 04/28 164 Complete CBC WITHOUT DIFFERENTIAL 04/28 164 Complete Laboratory Tests 04/28/18 1645: Anion Gap 9, Estimated GFR > 60, BUN/Creatinine Ratio 21.3, Glucose 118 H, Calcium 9.6, Total Bilirubin 0.4, AST 18, ALT 22, Alkaline Phosphatase 53, Total Protein 7.7, Albumin 4.2, Globulin 3.5, Albumin/Globulin Ratio 1.2, CBC w Diff NO MAN DIFF REQ, RBC 3.94 L, MCV 90.0, MCH 30.6, MCHC 34.1, RDW 15.3 H, MPV 7.7, Gran % 69.3, Lymphocytes % 24.5, Monocytes % 5.3, Eosinophils % 0.6, Basophils % 0.3, Absolute Granulocytes 4.2, Absolute Lymphocytes 1.5, Absolute Monocytes 0.3, Absolute Eosinophils 0, Absolute Basophils 0 Diagnostic Imaging: Viewed by Me: Radiology Read. Discussed w/RAD: Radiology Read. Radiology Impression: no acute abnormality Initial ED EKG: normal axis, normal intervals, LVH (Neftali PHELPS,Dejuan) Departure Departure Disposition: STILL A PATIENT Condition: Stable Clinical Impression Primary Impression: TIA (transient ischemic attack) Referrals: June Rendon APRN (PCP/Family) Departure Forms: Customer Survey General Discharge Information Admission Note Documentation of Exam: Documentation of any treatments & extenuating circumstances including Concerns Regarding Discharge (functional status, medication knowledge or non-compliance, living conditions, etc.) that warrant an admission rather than observation: [The patient presented with new neurological symptoms in the setting of multiple prior strokes, concerning for new stroke or TIA. With her symptoms she would likely have been at risk of further clinical deterioration at home, possible additional strokes, and as she lives alone at home she would have been unsafe to be at home with possible evolving stroke, without inpatient medical monitoring and treatment. She should be seen by a neurologist and have further evaluation as an inpatient for possible stroke to include an MRI of the brain, as well as reassessment of her current medications and risk factors in the setting of multiple strokes. Because of all of these factors I expect this patient to require a multiple day hospital admission as an inpatient on the telemetry service. ] (Neftali PHELPS,Dejuan) Admission Note Spoke With: Flores PHELPS,Marie Resident Co-Sign Statement Statement: ED Attending supervision documentation- [X] I saw and evaluated the patient. I have also reviewed all the pertinent lab results and diagnostic results. I agree with the findings and the plan of care as documented in the Resident's documentation. [X] I have reviewed the ED Record and agree with the Resident's documentation. [] Additions or exceptions (if any) to the Resident's note and plan are summarized below: [] (Inna PHELPS,Shoaib Bradley) ED Attending Observation Initial Observation Note: I have seen and personally examined RG GAONA on 04/28/18 at 1752. I agree with the current emergency department documentation. The disposition (admission or discharge) is uncertain at this time, she needs a period of observation for the following reason(s): The ED Nurse caring for this patient has been personally informed as to what the patient is being observed for. (Neftali PHELPS,Dejuan)
[2018-04-28 16:52] LABS: ABSOLUTE BASOPHIL COUNT 0 /CUMM (0.0-0.2); ABSOLUTE EOSINOPHIL COUNT 0 /CUMM (0.0-0.7); ABSOLUTE GRANULOCYTE CT 4.2 /CUMM (1.4-6.5); ABSOLUTE LYMPH COUNT 1.5 /CUMM (1.2-3.4); ABSOLUTE MONOCYTE COUNT 0.3 /CUMM (0.10-0.60); BASOPHIL % 0.3 % (0.0-2.0); EOSINOPHIL % 0.6 % (0-5); GRANULOCYTE % 69.3 % (42.2-75.2); HEMATOCRIT 35.5 % (37-47); MEAN CORPUSCULAR HGB 30.6 PG (27.0-31.0); MEAN CORPUSCULAR HGB CONC 34.1 G/DL (33.0-37.0); MEAN PLATELET VOLUME 7.7 FL (7.4-10.4); PLATELET COUNT 261 /CUMM (130-400); RBC DISTRIBUTION WIDTH 15.3 % (11.5-14.5); RED BLOOD CELL CT 3.94 /CUMM (4.20-5.40)
--- NOTE | 2018-04-28 17:52 | RADIOLOGY REPORT ---
EXAMINATION: CHEST 1 VIEW CLINICAL INFORMATION: Altered mental status. COMPARISON: Same day chest radiograph obtained at 1506 hours. TECHNIQUE: An AP view of the chest was obtained at 1723 hours. FINDINGS: The cardiac silhouette is stable. The mediastinal and hilar contours are unremarkable. There are neither pleural effusions nor pneumothoraces. There are no consolidations. The osseous structures are unremarkable. IMPRESSION: No evidence for acute disease.
--- NOTE | 2018-04-28 17:56 | CT SCAN REPORT ---
EXAMINATION: CT HEAD WITHOUT CONTRAST CLINICAL INFORMATION: Altered mental status. COMPARISON: 12/27/2017. TECHNIQUE: Contiguous axial images of the brain were obtained without IV contrast. DLP: 625 mGy-cm. FINDINGS: There are no pathologic extra-axial fluid collections. The lateral, third, fourth ventricles are prominent, though age-appropriate, stable and concordant with the appearance of the sulci. There is no evidence for acute intraparenchymal hemorrhage or infarct. There is periventricular low-attenuation indicative of small vessel disease. There is neither mass nor mass effect. There is no shift of midline structures. The paranasal sinuses and mastoid air cells are clear. There are no osseous lesions. IMPRESSION: No evidence for acute intracranial injury. Stable appearance of the brain.
[2018-04-28] MEDS ORDERED: ATORVASTATIN CA40 M1 PO (19:35)
[2018-04-28] MEDS ORDERED: LISINOPRIL30 M1 PO (19:35)
[2018-04-28] MEDS ORDERED: ENSURE LIQUID237 ML PO (19:36)
--- NOTE | 2018-04-28 20:15 | History & Physical ---
General Information and HPI MD Statement: I have seen and personally examined RG GAONA and documented this H&P. The patient is a 62 year old F who presented with a patient stated chief complaint of [cva]. Source of Information: family, old records Exam Limitations: clinical condition History of Present Illness: Patient is a 61-year-old female with past medical history of hepatitis C( completed treatment;sofobvir), hypertension, hyperlipidemia, multiple vascular infarct( 2000, 2010, 2015 s/p TPA), vascular dementia,mitral regurgitation, presentd with weakness of left legs. Most of the history taken from the daughter over the phone. According to her she was at her baseline usually walks with a walker. She lives at home with the daughter Ms. Marti, a home health and usually come daily to help her out. She usually walks with a walker. She was completely all right till yesterday. In the morning she was having difficulty in the lifting her left leg and lost her balance. When the 8 come to the home she called her daughter and said that she is leaning more towards the left side and her blood pressure is 240/110, so they brought her to the [facility] ED. Past medical history - Hypertension Hyperlipidemia History of hepatitis C treated with the SOFOSBUVIR History of multiple vascular infarct leading to vascular dementia Mitral regurgitation Allergies/Medications Allergies: Coded Allergies: NO KNOWN ALLERGIES (08/22/16) Home Med list Atorvastatin Calcium 40 MG TABLET 1 TAB PO DAILY CHOLESTEROL (Reported) Dipyridamole W/ Aspirin (Aggrenox 25 MG-200 MG Capsule) 25 MG-200 MG CPMP.12HR 1 CAP PO BID HEART HEALTH (Reported) Lactose-Reduced Food (Ensure Liquid) 237 ML LIQUID 237 ML PO BID NUTRITIONAL SUPPLEMENT (Reported) Lisinopril 30 MG TABLET 1 TAB PO DAILY BP (Reported) Sertraline HCl 50 MG TABLET 1 TAB PO DAILY MENTAL HEALTH (Reported) Past History Travel History Traveled to [place] past 21 day No Medical History Neurological: CVA 2000, 2010 major ones multiple CVAs in between 2000 and 2010 EENT: NONE Cardiovascular: hypertension, hyperlipidemia Respiratory: NONE Gastrointestinal: NONE Hepatic: hepatitis C Renal: NONE Musculoskeletal: NONE Psychiatric: NONE Endocrine: NONE Blood Disorders: NONE Cancer(s): NONE 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 child, family Primary Language: [place] Living Will? no Functional Ability ADLs Needs Assist: dressing, eating, toileting, bathing. Ambulation: cane, walker IADLs Needs Assist: shopping, housework, finances, food prep, telephone, transportation, medication admin. Review of Systems Review of Systems Constitutional: Reports: no symptoms. Comments Cannot comment because of the patient's clinical situation Exam & Diagnostic Data Last 24 Hrs of Vital Signs/I&O Vital Signs Date Time Temp Pulse Resp B/P B/P Pulse O2 O2 Flow FiO2 Mean Ox Delivery Rate 04/28 2053 72 190/90 04/288 98.6 71 20 190/90 97 Room Air 04/28 1937 72 04/28 1809 204/100 04/28 1649 96 Room Air 04/28 164 98.9 18 220/108 97 Room Air Physical Exam General Appearance Alert, Cooperative, No Acute Distress Cardiovascular Normal S1, Normal S2 Lungs Clear to Auscultation, Normal Air Movement Abdomen Soft, No Tenderness Neurological stifness in upper and lower legs, power 4/5, following all the commands, Extremities No Clubbing, No Cyanosis, No Edema Last 24 Hrs of Labs/Marco Antonio: Laboratory Tests 04/28/181644: Anion Gap 9, Estimated GFR > 60, BUN/Creatinine Ratio 21.3, Glucose 118 H, Calcium 9.6, Total Bilirubin 0.4, AST 18, ALT 22, Alkaline Phosphatase 53, Total Protein 7.7, Albumin 4.2, Globulin 3.5, Albumin/Globulin Ratio 1.2, CBC w Diff NO MAN DIFF REQ, RBC 3.94 L, MCV 90.0, MCH 30.6, MCHC 34.1, RDW 15.3 H, MPV 7.7, Gran % 69.3, Lymphocytes % 24.5, Monocytes % 5.3, Eosinophils % 0.6, Basophils % 0.3, Absolute Granulocytes 4.2, Absolute Lymphocytes 1.5, Absolute Monocytes 0.3, Absolute Eosinophils 0, Absolute Basophils 0 Diagnostic Data EKG Results NSr, heart rate 75, hypertensive changes Core Measures/Misc (05/29) Cerebrovascular Accident CVA/TIA Diagnosis: Yes Date Last Known Well: 04/27/18 Time Last Known Well: 1999 Symptom Start Date: 04/28/18 Symptom Start Time: 0900 Swallow Evaluation Pass Sepsis (View protocol) If YES complete Sepsis Event Note If YES complete Sepsis Event Note
--- NOTE | 2018-04-28 21:08 | History & Physical ---
Pa Wiggins 04/28/182106: General Information and HPI MD Statement: I have seen and personally examined RG GAONA and documented this H&P. The patient is a 62 year old F who presented with a patient stated chief complaint of [RLE weakness, slumped to Left side since 10am, last normal last evening]. Source of Information: family, old records Exam Limitations: clinical condition, dementia History of Present Illness: 62 year old female with history of vascular dementia, s/p multiple previous CVA' s with residual RLE weakness and slurring of speech, on Aggrenox at home, Hep C, HLD, presents with worsening RLE weakness since 10am this morning, unable to ambulate per daughter. Pt was able to understand commands, but did not know time of day or where she was. History limited by patient secondary to dementia, which was baseline per daugther. History was obtained from old records and calling family, daughter REMEDIOS: Last time pt was at baseline strength per daughter was when they ate dinner together last night 04/27/18. Pt lives with daughter and has a visiting home health aide; this morning when nurse aid come to the home around 10 -11 AM she noticed that patient had weakness in her legs, was leaning towards left side and her blood pressure is 240/110; they called ambulance who brought her to [facility] ED. Pt was in her usual state of health yesterday 04/27 and they did not notice any fevers/chills/odd behavior/urinary symptoms/falls. Major concern for family was the increased weakness in lower extremities and the blood pressure, as patient had taken her morning blood pressure medication. Allergies/Medications Allergies: Coded Allergies: NO KNOWN ALLERGIES (08/22/16) Home Med list Atorvastatin Calcium 40 MG TABLET 1 TAB PO DAILY CHOLESTEROL (Reported) Dipyridamole W/ Aspirin (Aggrenox 25 MG-200 MG Capsule) 25 MG-200 MG CPMP.12HR 1 CAP PO BID HEART HEALTH (Reported) Lactose-Reduced Food (Ensure Liquid) 237 ML LIQUID 237 ML PO BID NUTRITIONAL SUPPLEMENT (Reported) Lisinopril 30 MG TABLET 1 TAB PO DAILY BP (Reported) Sertraline HCl 50 MG TABLET 1 TAB PO DAILY MENTAL HEALTH (Reported) Past History Travel History Traveled to [place] past 21 day No Medical History Neurological: CVA 2000, 2010 major ones multiple CVAs in between 2000 and 2010 EENT: NONE Cardiovascular: hypertension, hyperlipidemia Respiratory: NONE Gastrointestinal: NONE Hepatic: hepatitis C Renal: NONE Musculoskeletal: NONE Psychiatric: NONE Endocrine: NONE Blood Disorders: NONE Cancer(s): NONE 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 child, family Primary Language: Micronesian Living Will? no Functional Ability ADLs Needs Assist: dressing, eating, toileting, bathing. Ambulation: cane, walker IADLs Needs Assist: shopping, housework, finances, food prep, telephone, transportation, medication admin. Review of Systems Review of Systems Constitutional: Reports: see HPI. Exam & Diagnostic Data Last 24 Hrs of Vital Signs/I&O Vital Signs Date Time Temp Pulse Resp B/P B/P Pulse O2 O2 Flow FiO2 Mean Ox Delivery Rate 04/28 2053 72 190/90 04/28 1958 98.6 71 20 190/90 97 Room Air 04/28 1937 72 04/28 1809 204/100 04/28 1649 96 Room Air 04/28 1645 98.9 18 220/108 97 Room Air Physical Exam General Appearance Alert, Cooperative, No Acute Distress, THIN, alert, oriented x1; pt has dementia is difficult to understant but follows commands, leaning to left side Skin No Rashes Skin Temp/Moisture Exam: Warm/Dry HEENT Atraumatic, EOMI, Mucous Membr. moist/pink Neck Supple Cardiovascular Regular Rate, Normal S1, Normal S2 Lungs Clear to Auscultation, Normal Air Movement Abdomen Soft, No Tenderness Neurological Sensation Intact, Cranial Nerves 3-12 NL, strength 4+/5 at distal b /l LE; 5/5 to upper extremities Extremities Normal Pulses Vascular Pulses Symmetrical Last 24 Hrs of Labs/Marco Antonio: Laboratory Tests 04/28/18 1645: Anion Gap 9, Estimated GFR > 60, BUN/Creatinine Ratio 21.3, Glucose 118 H, Calcium 9.6, Total Bilirubin 0.4, AST 18, ALT 22, Alkaline Phosphatase 53, Total Protein 7.7, Albumin 4.2, Globulin 3.5, Albumin/Globulin Ratio 1.2, CBC w Diff NO MAN DIFF REQ, RBC 3.94 L, MCV 90.0, MCH 30.6, MCHC 34.1, RDW 15.3 H, MPV 7.7, Gran % 69.3, Lymphocytes % 24.5, Monocytes % 5.3, Eosinophils % 0.6, Basophils % 0.3, Absolute Granulocytes 4.2, Absolute Lymphocytes 1.5, Absolute Monocytes 0.3, Absolute Eosinophils 0, Absolute Basophils 0 04/28/18 1642: Urine Color Cancelled, Urine Clarity Cancelled, Urine pH Cancelled, Ur Specific [place] Cancelled, Urine Protein Cancelled, Urine Ketones Cancelled, Urine Nitrite Cancelled, Urine Bilirubin Cancelled, Urine Urobilinogen Cancelled, Ur Leukocyte Esterase Cancelled, Ur Microscopic Cancelled, Urine Hemoglobin Cancelled, Urine Glucose Cancelled Diagnostic Data EKG Results NSr, heart rate 75, hypertensive changes Assessment/Plan Assessment: Mrs Gaona is a 62F with history of vascular dementia, s/p multiple previous CVA 's (last hospitalization at [facility] in 2016 for CVA) with residual RLE weakness and slurring of speech, on Aggrenox at home, Hep C, HLD, presents with worsening RLE weakness since 10am this morning, unable to ambulate per daughter and hypertensive. As she has baseline dementia, this is hypertensive urgency until proven otherwise. She had focal neuro deficits (decreased RLE strength with inability to ambulate) however was 4+ on exam in ED, likely resolved. Her last normal was last night, and so is out of the window for tPA. CT head negative; MRI ordered but not completed. Problem List: #Hypertensive urgency #TIA vs Stroke #Hypokalemia #PMH Dementia, CVA, Hep C, HLD #Hypertensive urgency vs emergency -Admit to Telemetry -Maintain BP below 190/100; permissive hypertension 180/100 -Labetalol 10mg IV if pt becomes crosses threshold BP -Blood pressure checks q2 hours for 8-10 hours -Continue ASA/dipyramadole, statin, lisinopril #TIA vs Stroke -Neurology reccs appreciated -MRI brain in the am -Passed swallow eval in ED -Permissive hypertension -Neuro checks q2 -PT/OT in AM HypoK -Recieved K in ED -F/u BMP in AM DVT PPx: ALPS and Heparin IV access Regular Diet Full Code Dispo: per PT reccs As Ranked By This Provider Problem List: 1. TIA (transient ischemic attack) Core Measures/Misc (9/17) Acute Coronary Syndrome ACS Diagnosis: No Congestive Heart Failure Congestive Heart Failure Diagnosis No Cerebrovascular Accident CVA/TIA Diagnosis: Yes Date Last Known Well: 04/27/18 Time Last Known Well: 1999 Symptom Start Date: 04/28/18 Symptom Start Time: 09 tPA Risk/Benefit discussion I have discussed the risks, benefits, and alternatives of Alteplase treatment including: - If given promptly, can resolve or have major improvement in stroke symptoms. - Bleeding (hemorrhage) is the most common risk that can occur. - Bleeding may occur into the brain and cause~nursing home serious disability~ including - this is rare, affecting about 1% of patients. - Alternative treatments with proven benefit for patients with stroke include aspirin and care in a specialized unit where staff members pay careful attention to a variety of basic aspects of care. tPA given? No Reason tPA not ordered Medical Contraindication (out of window) Swallow Evaluation Pass Current/Past Hx AFib/AFlutter No VTE (View Protocol) VTE Risk Factors Age>40 No Mechanical VTE Prophylaxis d/t N/A MechProphylax Ordered No VTE Pharm Prophylaxis d/t Medical Contraindication (on asa, severe hypertension) Sepsis (View protocol) Sepsis Present: No If YES complete Sepsis Event Note If YES complete Sepsis Event Note Carlos PHELPS,Pito 04/28/182152: Exam & Diagnostic Data Last 24 Hrs of Vital Signs/I&O Vital Signs Date Time Temp Pulse Resp B/P B/P Pulse O2 O2 Flow FiO2 Mean Ox Delivery Rate 05/01 1440 97.8 90 20 150/86 98 05/01 1144 Room Air 05/01 0820 81 140/84 05/01 0739 98.7 74 18 138/94 98 Room Air 05/01 0000 Room Air 04/30 2313 150/88 04/30 2221 98.7 77 18 160/84 98 Intake & Output 05/01 1600 05/01 0800 05/01 0000 Intake Total 320 120 120 Output Total Balance 320 120 120 Intake, Oral 320 120 120 Number 2 Bowel Movements Patient 47.259 kg 47.259 kg Weight Core Measures/Misc (05/29) Cerebrovascular Accident NIH Stroke Scale: Total 4 No Antithrombotic d/t Medical Contraindication No Anticoagulant d/t Medical Contraindication Comment cannt access due to previous d Sepsis (View protocol) If YES complete Sepsis Event Note If YES complete Sepsis Event Note Resident Review Statement Resident Statement: examined this patient, discussed with internet sourcer, agreed with internet sourcer Other Findings: Patient is a 61-year-old female with past medical history of hepatitis C( completed treatment;sofobvir), hypertension, hyperlipidemia, multiple vascular infarct( 2000, 2010, 2015 s/p TPA), vascular dementia,mitral regurgitation, urinary incontinence, presentd with weakness of left legs. Most of the history taken from the daughter over the phone. According to her she was at her baseline usually walks with a walker. She lives at home with the daughter Ms. Marti, a home health and usually come daily to help her out. She usually walks with a walker. She was completely all right till yesterday. In the morning she was having difficulty in the lifting her left leg and lost her balance. When nurse aid come to the home around 10 -11 AM she called her daughter and said that she is leaning more towards the left side and her blood pressure is 240/110, so they brought her to the [facility] ED. Past medical history - Hypertension Hyperlipidemia History of hepatitis C treated with the SOFOSBUVIR History of multiple vascular infarct leading to vascular dementia Mitral regurgitation Vital signs at the time of admission -temperature 98.9, respiratory rate 18, blood pressure 220/108, SPO2 97% on room air. Blood workup -hemoglobin 12.1, hematocrit 35.5, platelet count 261, granulocyte 69.3, sodium 143, potassium 3.1, chloride 105, carbon DEXA 29, anion gap 9, BUN 17, creatinine 0.8, glucose 118, calcium 9.6, total bilirubin 0.4, AST 18, ALT 22, alkaline phosphatase 55, albumin 4.2, CT scan of the head -No evidence for acute intracranial injury. Stable appearance of the brain. CXR -No evidence for acute disease. Assessment and plan -patient is a 62-year-old female with past medical history of multiple CVA leading to vascular dementia. She is baseline walk with a walker and needed nursing aid, to give her daily medications. In the morning she was found to have left leg weakness followed by high blood pressure that is why brought to the ED. Her blood workup was normal except hypokalemia and CT scan and chest x-ray did not show any evidence of acute cardiopulmonary changes or hemorrhage/stroke. On examination she was not having any focal neurological deficit. Discussed with the doctor Atul over the phone, he advised that, as she is not having any focal neurological deficit it seems that she may be having TIA or hypertensive emergency. She is already on aspirin/dipyridamole, and high -dose atorvastatin. We need to control her blood pressure in the range of 180/ 100. He wanted us to continue tablet lisinopril 30 mg daily. He thinks MRI will not help though if needed can be done in the morning. Plan - Focal neurological deficit possibly secondary to hypertensive emergency, TIA, stroke - * Admit the patient to telemetry floor. * Neuro check every 2 hourly * Permissive hypertension -keep target blood pressure 180/100. * We will continue aspirin/dipyridamole, atorvastatin, lisinopril * Follow-up neurology recommendation * MRI of the brain-tomorrow * Strict intake output charting * PT/OT * Case management evaluation for rehabilitation * Swallow evaluation Hypokalemia - * We will repeat the BMP tomorrow * Potassium is already supplemented in ED CODE STATUS -confirmed from her daughter Kaley -full code Diet -regular diet DVT prophylaxis -DAVIN/aspirin/dipyridamole Of note - Please call Mrs.Estella Royal -[phone] Flores PHELPS,Marie 04/29/18 0010: Core Measures/Misc (05/29) Sepsis (View protocol) If YES complete Sepsis Event Note If YES complete Sepsis Event Note Attending MD Review Statement Attending Statement Attending Assessment/Plan: This is a 62-year-old female presenting to the hospital for evaluation of worsening aphasia and right lower extremity weakness which started earlier this morning. Of note, patient has a past medical history significant for multiple CVAs/TIA resulting in mild right lower extremity weakness. Patient ambulates using a walker. Upon arrival to the emergency department she was found to be profoundly hypertensive with apparent confusion worsened from her baseline. Problem list: Hypertensive emergency leading to changes in mental status associated with worsening right lower extremity weakness weakness which is now resolved. Differential diagnosis includes acute CVA versus hypertensive emergency versus PRESS syndrome. Neurology was contacted and recommended better blood pressure control. Patient had a CT of the head which was negative. MRI of the brain will not be able to be completed until tomorrow morning. Plan: We will place blood pressure parameters; tolerate blood pressure no higher than 190/100 Continue home antihypertensive lisinopril 30 mg p.o. daily and if needed we will add labetalol 10 mg IV as needed Monitor blood pressure every 2 hours over the next 8-[address] patient on telemetry MRI of the brain tomorrow morning Continue aspirin and statin Monitor neuro exam; if focal deficits appreciated we will repeat CT scan of the head Trend troponins Neurology consultation appreciated
[2018-04-28 22:42] VITALS: BP 158/90
[2018-04-29 04:47] VITALS: BP 158/98
[2018-04-29 06:30] VITALS: BP 150/80
[2018-04-29 06:54] VITALS: BP 150/80
[2018-04-29 08:00] VITALS: BP 150/80
--- NOTE | 2018-04-29 08:43 | PN- Housestaff ---
Mari Quiros 04/29/18 0843: Subjective Follow-up For: Right lower extremity weakness Subjective: No acute events overnight, afebrile. Patient is daughter sitting at bedside, patient has no complaint of, is aware of her being in the hospital. Patient's daughter states mother is at baseline however still concerned of right lower extremity weakness. Denies fever, night sweats, chills Review of Systems Constitutional: Reports: see HPI. Objective Last 24 Hrs of Vital Signs/I&O Vital Signs Date Time Temp Pulse Resp B/P B/P Pulse O2 O2 Flow FiO2 Mean Ox Delivery Rate 04/29 0901 65 150/80 04/29 0800 80 150/80 04/29 0654 65 150/80 04/29 0630 98.3 65 18 150/80 96 04/29 0447 66 158/98 04/28 2242 98.2 62 18 158/90 98 Room Air 04/28 2053 72 190/90 04/28 1958 98.6 71 20 190/90 97 Room Air 04/28 1937 72 04/28 1809 204/100 04/28 1649 96 Room Air 04/28 1645 98.9 18 220/108 97 Room Air Intake & Output 04/29 1600 04/29 0800 04/29 0000 Intake Total Output Total Balance Patient 94 lb 10 oz Weight Weight Bed scale Measurement Method Physical Exam General Appearance: Alert, Oriented X3, Cooperative Cardiovascular: Regular Rate, Normal S1, Normal S2 Lungs: Clear to Auscultation, Normal Air Movement Neurological: BILAT LE STRENGTH 3/5 Extremities: SIGNIFICANT ATROPHY OF LE MUSCLES Assessment/Plan Assessment: Mrs Franklin is a 62F with history of vascular dementia, s/p multiple previous CVA 's (last hospitalization at [facility] in 2016 for CVA) with residual RLE weakness and slurring of speech, on Aggrenox at home, Hep C, HLD, presents with worsening RLE weakness since 10am this morning, unable to ambulate per daughter and hypertensive. As she has baseline dementia, this is hypertensive urgency until proven otherwise. She had focal neuro deficits (decreased RLE strength with inability to ambulate) however was 4+ on exam in ED, likely resolved. Her last normal was last night, and so is out of the window for tPA. CT head negative; MRI ordered but not completed. Problem List: 1. Cerebrovascular accident 2. HypoKalemia 3. Hypertension #CVA while on aggrenox: Patient sustained an acute small lacunar stroke extending from the right villegas radiate towards the right operculum. Focus of petechial hemorrhage. Patient has history of multiple CVAs. -will continue Aggrenox -continue Atorvastatin 40mg -consult Physical Therapy -will defer carotid doppler and echo for right now -plan to repeat head CT for evaulation of petechial hemorrhage in 48 hours, and if it resolves will reasses for full anti-coagulation #Hypokalemia: Potassium on admission is 3.1, today at 3.4 -replete Potassium #Hypertension: BP on present was 220/108, today has been 150/80 -Lisinopril 30mg DVT PPx: ALPS and Heparin Regular Diet Full Code Problem List: 1. CVA (cerebral vascular accident) Pain Ratin Pain Location: n/a Pain Goal: Remain pain free Pain Plan: tylenol Tomorrow's Labs & Rationales: Viviana Min 04/29/18 1426: Attending MD Review Statement Attending Statement Attending MD Statement: examined this patient, discuss w/resident/PA/HAIR SPECIALIST, agreed w/resident/PA/HAIR SPECIALIST, discussed with family, reviewed EMR data (avail) Attending Assessment/Plan: Stroke- MRI brain does show new small acute stroke. d/w neurology- cont with current antiplatelet therapy with aggrenox. Bp control is better since admission. Will f/u on final neuro recommendations. dw/ pt and pts family at bedside the care plan.
--- NOTE | 2018-04-29 13:50 | MRI REPORT ---
MR BRAIN WITHOUT CONTRAST CLINICAL INFORMATION: TIA. Altered mental status. Right lower extremity weakness. COMPARISON: Head CT 04/28/2018. Brain MRI 08/23/2016. TECHNIQUE: MRI of the brain without contrast was obtained using routine sequences. FINDINGS: There is a small acute lacunar infarct extending from the right villegas radiata towards the right operculum. No associated mass effect and no hemorrhagic transformation. No additional acute infarcts accounting for artifact. Multiple foci of susceptibility artifact within the deep ramos nuclei in the periphery of the left greater than right cerebral hemisphere that most likely reflect chronic hypertensive petechial microhemorrhages. There are extensive T2 signal changes throughout the supratentorial white matter including the anterior temporal pole white matter external coronal capsules as well as the corpus callosum. Differential considerations include advanced chronic microangiopathy, CADASIL, and demyelinating disease. There are chronic lacunar infarcts within the deep ramos nuclei bilaterally, the brainstem, and the cerebellar hemispheres. Progressive global cerebral volume loss. There is a focus of susceptibility artifact within the anteromedial aspect of the inferior right thalamus that in retrospect exhibits mildly increased density on yesterday's head CT, possibly a focus of petechial hemorrhage that is stable on MRI and that can be followed with noncontrast head CT. There is no hydrocephalus, extra-axial surface collection, or herniation. The major flow voids at the skull base are preserved. The cerebellar tonsils are normally positioned. The craniocervical junction is normal. Osseous marrow signal intensity is homogenous. The visualized soft tissues are unremarkable. IMPRESSION: - There is a small acute lacunar infarct extending from the right villegas radiata towards the right operculum. - There is a small punctate focus of susceptibility artifact within the anteromedial aspect of the inferior right thalamus that in retrospect exhibits mildly increased density on yesterday's head CT, possibly a focus of petechial hemorrhage that is stable on MRI and that can be followed with noncontrast head CT. - There are progressive extensive T2 signal changes throughout the supratentorial white matter including the anterior temporal pole white matter and the external capsules as well as the corpus callosum. Differential considerations include advanced chronic microangiopathy, CADASIL, and demyelinating disease. - Multiple progressive foci of susceptibility artifact within the deep ramos nuclei in the periphery of the left greater than right cerebral hemisphere that most likely reflect chronic hypertensive petechial microhemorrhages. Amyloid considered less likely given the patient's age. - There are chronic lacunar infarcts within the deep ramos nuclei bilaterally, the brainstem, and the cerebellar hemispheres. - Progressive global cerebral volume loss. Covering provider has been paged with these findings at 1:45 PM on 04/29/2018.
--- NOTE | 2018-04-29 14:16 | Cons- Neurology ---
General Information and HPI Consulting Request Date of Consult: 04/29/18 Requested By: Marie Tanner MD Reason for Consult: Possible TIA or CVA Source of Information: family Exam Limitations: dementia History of Present Illness: 62-year-old -[place] woman with known vascular dementia with a recently stable level of function, awake, ambulatory with walker, frequently calling family but requiring assistance for most all ADLs alerted the family when they did not hear her calling for a while. They found her unable to rise with apparent left body weakness. She was "glassy eyed", not as responsive as usual but with eyes open. The patient did not voice any complaints. At this time she appears back to baseline except that she has been unable to stand today. The patient herself can give no useful information Allergies/Medications Allergies: Coded Allergies: NO KNOWN ALLERGIES (08/22/16) Home Med List: Atorvastatin Calcium 40 MG TABLET 1 TAB PO DAILY CHOLESTEROL (Reported) Dipyridamole W/ Aspirin (Aggrenox 25 MG-200 MG Capsule) 25 MG-200 MG CPMP.12HR 1 CAP PO BID HEART HEALTH (Reported) Lactose-Reduced Food (Ensure Liquid) 237 ML LIQUID 237 ML PO BID NUTRITIONAL SUPPLEMENT (Reported) Lisinopril 30 MG TABLET 1 TAB PO DAILY BP (Reported) Sertraline HCl 50 MG TABLET 1 TAB PO DAILY MENTAL HEALTH (Reported) Current Medications: Current Medications Sig/José Start time Last Medication Dose Route Stop Time Status Admin Atorvastatin Calcium 40 MG DAILY 04/29 0900 AC 04/29 PO 0901 Dipyridamole/Aspirin 1 CAP BID 04/28 2100 AC 04/29 PO 0901 Lisinopril 30 MG DAILY 04/28 2035 AC 04/29 PO 0901 Potassium Chloride 40 MEQ ONCE ONE 04/29 1030 DC PO 04/29 1031 Potassium Chloride 0 .STK-MED ONE 04/28 1849 DC PO Potassium Chloride 20 MEQ ONCE ONE 04/28 1830 DC 04/28 PO 04/28 1831 1904 Review of Systems Review of Systems: Unobtainable due to dementia Past History Travel History Traveled to [place] past 21 day No Medical History Neurological: CVA 2000, 2010 major ones multiple CVAs in between 2000 and 2010 EENT: NONE Cardiovascular: hypertension, hyperlipidemia Respiratory: NONE Gastrointestinal: NONE Hepatic: hepatitis C Renal: NONE Musculoskeletal: NONE Psychiatric: NONE Endocrine: NONE Blood Disorders: NONE Cancer(s): NONE 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 child, family Primary Language: Malaysian Smoking Status: Unknown If Ever Smoked Living Will? no Functional Ability ADLs Needs Assist: dressing, eating, toileting, bathing. Ambulation: cane, walker IADLs Needs Assist: shopping, housework, finances, food prep, telephone, transportation, medication admin. Exam & Diagnostic Data Vital Signs and I&O Vital Signs Date Time Temp Pulse Resp B/P B/P Pulse O2 O2 Flow FiO2 Mean Ox Delivery Rate 04/29 0901 65 150/80 04/29 0800 80 150/80 04/29 0654 65 150/80 04/29 0630 98.3 65 18 150/80 96 04/29 0447 66 158/98 04/28 2242 98.2 62 18 158/90 98 Room Air 04/28 2053 72 190/90 04/28 1958 98.6 71 20 190/90 97 Room Air 04/28 1937 72 04/28 1809 204/100 04/28 1649 96 Room Air 04/28 1645 98.9 18 220/108 97 Room Air Intake & Output 04/29 1600 04/29 0800 04/29 0000 Intake Total Output Total Balance Patient 94 lb 10 oz Weight Weight Bed scale Measurement Method Physical Exam: On exam she is a well cared for and comfortable appearing woman eating lunch, frequently reaching for the custard but being redirected back to her main meal by her daughter. She follows one-step commands and said hello but otherwise would not speak. Visual coffey appear full as she plans us towards movement from both the left and right, pupils small but equal and eye movements appear full. There is a very mild right lower facial weakness. Using both hands equally. 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 Tendon reflexes hypoactive but there are bilateral Babinski signs. Both lower extremities reveal increased tone in a spastic manner. Responded to touch in all 4 extremities. Gait not tested Last 48 Hours of Lab Results: Laboratory Tests 04/29 04/28 04/28 0625 1645 1642 Chemistry Sodium (137 - 145 mmol/L) 139 143 Potassium (3.5 - 5.1 mmol/L) 3.4 L 3.1 L Chloride (98 - 107 mmol/L) 102 105 Carbon Dioxide (22 - 30 mmol/L) 28 29 Anion Gap (5 - 16) 9 9 BUN (7 - 17 mg/dL) 16 17 Creatinine (0.5 - 1.0 mg/dL) 0.8 0.8 Estimated GFR (>60 ml/min) > 60 > 60 BUN/Creatinine Ratio (7 - 25 %) 20.0 21.3 Glucose (65 - 99 mg/dL) 118 H Calcium (8.4 - 10.2 mg/dL) 9.6 Total Bilirubin (0.2 - 1.3 mg/dL) 0.4 AST (14 - 36 U/L) 18 ALT (9 - 52 U/L) 22 Alkaline Phosphatase (<127 U/L) 53 Troponin I (< 0.11 ng/ml) < 0.01 < 0.01 Total Protein (6.3 - 8.2 g/dL) 7.7 Albumin (3.5 - 5.0 g/dL) 4.2 Globulin (1.9 - 4.2 gm/dL) 3.5 Albumin/Globulin Ratio (1.1 - 2.2 %) 1.2 Hematology CBC w Diff NO MAN DIFF REQ WBC (4.8 - 10.8 /CUMM) 6.0 RBC (4.20 - 5.40 /CUMM) 3.94 L Hgb (12.0 - 16.0 G/DL) 12.1 Hct (37 - 47 %) 35.5 L MCV (81.0 - 99.0 FL) 90.0 MCH (27.0 - 31.0 PG) 30.6 MCHC (33.0 - 37.0 G/DL) 34.1 RDW (11.5 - 14.5 %) 15.3 H Plt Count (130 - 400 /CUMM) 261 MPV (7.4 - 10.4 FL) 7.7 Gran % (42.2 - 75.2 %) 69.3 Lymphocytes % (20.5 - 51.1 %) 24.5 Monocytes % (1.7 - 9.3 %) 5.3 Eosinophils % (0 - 5 %) 0.6 Basophils % (0.0 - 2.0 %) 0.3 Absolute Granulocytes (1.4 - 6.5 /CUMM) 4.2 Absolute Lymphocytes (1.2 - 3.4 /CUMM) 1.5 Absolute Monocytes (0.10 - 0.60 /CUMM) 0.3 Absolute Eosinophils (0.0 - 0.7 /CUMM) 0 Absolute Basophils (0.0 - 0.2 /CUMM) 0 Urines Urine Color Cancelled Urine Clarity Cancelled Urine pH Cancelled Ur Specific [place] Cancelled Urine Protein Cancelled Urine Ketones Cancelled Urine Nitrite Cancelled Urine Bilirubin Cancelled Urine Urobilinogen Cancelled Ur Leukocyte Esterase Cancelled Ur Microscopic Cancelled Urine Hemoglobin Cancelled Urine Glucose Cancelled Imaging/Other Studies: MRI brain: There is a small acute lacunar infarct extending from the right villegas radiata towards the right operculum. No associated mass effect and no hemorrhagic transformation. No additional acute infarcts accounting for artifact. Multiple foci of susceptibility artifact within the deep ramos nuclei in the periphery of the left greater than right cerebral hemisphere that most likely reflect chronic hypertensive petechial microhemorrhages. There are extensive T2 signal changes throughout the supratentorial white matter including the anterior temporal pole white matter external coronal capsules as well as the corpus callosum. Assessment/Plan Assessment: Acute small lacunar stroke, subcortical on the right consistent with the report of left-sided weakness yesterday. There has been a degree of clinical improvement as she is using both arms equally, but was unable to stand. The event occurred on Aggrenox and a statin Initial blood pressure very high but now 150/80 Recommendations: Continue Aggrenox and the statin Considered change to Plavix but based on available studies Aggrenox offers somewhat better protection. Carotid Doppler would be interesting to determine degree of atherosclerotic change but could be deferred. I do not feel that she would be a candidate for endarterectomy should stenosis be found. She is not a candidate for full anticoagulation with the microhemorrhages seen on MRI and therefore I feel that echocardiogram could also be reasonably deferred. Physical therapy consultation. May need short-term rehab. Consult Acknowledgment - Thank you for your consult request.
[2018-04-29 14:51] VITALS: BP 118/70
[2018-04-29 22:13] VITALS: BP 140/72
[2018-04-30 06:00] VITALS: BP 164/90
--- NOTE | 2018-04-30 08:40 | PN- Housestaff ---
eMlvin Montano 04/30/18 0839: Subjective Follow-up For: Right lower extremity weakness Complaints: no complaints Tele-Events Since Last Visit: Sinus rhythm 75-94 bpm with some junctional beats Subjective: Review the patient lying on the bed able to respond obeying commands but speaking with difficulty which is her baseline. Patient denies anything bothering her overnight Review of Systems Constitutional: Denies: chills, fever. Cardiovascular: Denies: chest pain, palpitations. Comments: Patient unable to respond to review of system questions Objective Last 24 Hrs of Vital Signs/I&O Vital Signs Date Time Temp Pulse Resp B/P B/P Pulse O2 O2 Flow FiO2 Mean Ox Delivery Rate 04/30 0932 73 164/90 04/30 0600 97.8 73 22 164/90 97 04/29 2213 98.1 91 20 140/72 97 Room Air 04/29 1451 98.6 82 18 118/70 97 Room Air Intake & Output 04/30 1600 04/30 0800 04/30 0000 Intake Total 120 240 Output Total Balance 120 240 Intake, Oral 120 240 Patient 101 lb Weight Weight Bed scale Measurement Method Physical Exam General Appearance: Alert, Cooperative, No Acute Distress Skin: No Rashes Skin Temp/Moisture Exam: Warm/Dry Sepsis Skin Exam (color): Normal for Ethnicity HEENT: Atraumatic, Mucous Membr. moist/pink Neck: Supple, No JVD Cardiovascular: Regular Rate, Normal S1, Normal S2 Lungs: Clear to Auscultation, Normal Air Movement Abdomen: Normal Bowel Sounds, Soft, No Tenderness Neurological: Decreased strength lower extermities unchanged from admission Extremities: No Clubbing, No Cyanosis Current Medications: Current Medications Sig/José Start time Last Medication Dose Route Stop Time Status Admin Atorvastatin Calcium 40 MG DAILY 04/29 09 AC 04/30 PO 0932 Dipyridamole/Aspirin 1 CAP BID 04/28 2100 AC 04/30 PO 0933 Lisinopril 30 MG DAILY 04/28 2035 AC 04/30 PO 0932 Potassium Chloride 0 .STK-MED ONE 04/29 2028 DC PO Potassium Chloride 40 MEQ ONCE ONE 04/29 1030 DC 04/29 PO 04/29 [id number] Last 24 Hrs of Lab/[place] Results Last 24 Hrs of Labs/Mics: Laboratory Tests 04/30/18 0655: Anion Gap 6, Estimated GFR > 60, BUN/Creatinine Ratio 23.8 Assessment/Plan Assessment: This is a 62F with history of vascular dementia, s/p multiple previous CVA's ( last hospitalization at [facility] in 2016 for CVA) with residual RLE weakness and slurring of speech, on Aggrenox at home, Hep C, HLD, presents with worsening RLE weakness since 10am this morning, unable to ambulate per daughter and hypertensive. As she has baseline dementia, this is hypertensive urgency until proven otherwise. She had focal neuro deficits (decreased RLE strength with inability to ambulate) however was 4+ on exam in ED, likely resolved. Her last normal was last night, and so is out of the window for tPA. CT head negative; MRI ordered but not completed. CVA while on aggrenox: Patient sustained an acute small lacunar stroke extending from the right villegas radiate towards the right operculum. Focus of petechial hemorrhage. Patient has history of multiple CVAs. continue Aggrenox and also continue Atorvastatin 40m Hypokalemia (resolved) On presentation had potassium of 3.1 today potassium 4.0 Uncontrolled hypertension Admission blood pressure as high as 220/108, BP has responded and decreased steadily overnight highest 164/90 and continue with blood pressure medications Problem List: 1. CVA (cerebral vascular accident) 2. HTN (hypertension) 3. HLD (hyperlipidemia) Pain Ratin Pain Location: None Pain Goal: Remain pain free Pain Plan: PRN pain meds Tomorrow's Labs & Rationales: BEP DVT/Prophylaxis: pharmacological Viviana Rossi 04/30/18 0955: Attending MD Review Statement Attending Statement Attending MD Statement: examined this patient, discuss w/resident/PA/CLASSIFICATIONS OFFICER CC/CM, agreed w/resident/PA/CLASSIFICATIONS OFFICER CC/CM, reviewed EMR data (avail) Attending Assessment/Plan: Stroke- MRI brain does show new small acute lacunar infarct in rt villegas radiata region. d/w neurology- cont with current antiplatelet therapy with aggrenox. Bp control is better since admission Hypokalemia- resolved now. PT to reevaluate on tuesday. Pt stays with daughter . Case management to look for STR if PT recommends that.
[2018-04-30 14:00] VITALS: BP 130/66
[2018-04-30 22:21] VITALS: BP 160/84
--- NOTE | 2018-04-30 22:22 | RADIOLOGY REPORT ---
2 VIEWS OF THE RIGHT HIP CLINICAL INFORMATION: Painful right hip. COMPARISON: Pelvic radiographs 12/27/2017. TECHNIQUE: Two views of the right hip. FINDINGS: The frontal and lateral views of the right hip are very limited secondary to patient positioning. Femoral acetabular alignment is maintained. No definite fractures are identified with assessment limited by patient obliquity. The imaged bony pelvis is intact. There are degenerative changes within the lower lumbar spine. There is arterial atherosclerotic calcification. IMPRESSION: This examination is significantly limited by patient positioning with no definite acute osseous findings identified. There are degenerative changes within the lower lumbar spine. Arterial atherosclerotic calcification.
[2018-04-30 23:13] VITALS: BP 150/88
[2018-05-01 07:39] VITALS: BP 138/94
[2018-05-01 08:32] LABS: ABSOLUTE BASOPHIL COUNT 0 /CUMM (0.0-0.2); ABSOLUTE EOSINOPHIL COUNT 0.1 /CUMM (0.0-0.7); ABSOLUTE GRANULOCYTE CT 4.8 /CUMM (1.4-6.5); ABSOLUTE LYMPH COUNT 2.1 /CUMM (1.2-3.4); ABSOLUTE MONOCYTE COUNT 0.5 /CUMM (0.10-0.60); BASOPHIL % 0.4 % (0.0-2.0); EOSINOPHIL % 1.5 % (0-5); GRANULOCYTE % 63.6 % (42.2-75.2); HEMATOCRIT 35.8 % (37-47); MEAN CORPUSCULAR HGB 29.7 PG (27.0-31.0); MEAN CORPUSCULAR HGB CONC 32.9 G/DL (33.0-37.0); MEAN CORPUSCULAR VOLUME 90.4 FL (81.0-99.0); MEAN PLATELET VOLUME 8.2 FL (7.4-10.4); PLATELET COUNT 253 /CUMM (130-400); RBC DISTRIBUTION WIDTH 15.5 % (11.5-14.5); RED BLOOD CELL CT 3.96 /CUMM (4.20-5.40); WHITE BLOOD CELL COUNT 7.6 /CUMM (4.8-10.8)
--- NOTE | 2018-05-01 08:48 | PN- Housestaff ---
IshaanVioletaries 05/01/18 0847: Subjective Follow-up For: Worsened RLE weakness Subjective: Patient was in NSR overnight 57-89. Has no c/o today, patient did express concern of her health when told of most recent infarct, although patient is difficult to understand with resultant dysarthria. Denies fever, night sweats, chills Review of Systems Constitutional: Reports: see HPI. Objective Last 24 Hrs of Vital Signs/I&O Vital Signs Date Time Temp Pulse Resp B/P B/P Pulse O2 O2 Flow FiO2 Mean Ox Delivery Rate 05/01 1440 97.8 90 20 150/86 98 05/01 1144 Room Air 05/01 0820 81 140/84 05/01 0739 98.7 74 18 138/94 98 Room Air 05/01 0000 Room Air 04/30 2313 150/88 04/30 2221 98.7 77 18 160/84 98 Intake & Output 05/01 1600 05/01 0800 05/01 0000 Intake Total 320 120 120 Output Total Balance 320 120 120 Intake, Oral 320 120 120 Number 2 Bowel Movements Patient 104 lb 104 lb Weight Physical Exam General Appearance: Alert, Oriented X3, Cooperative Cardiovascular: Regular Rate, Normal S1, Normal S2 Lungs: Clear to Auscultation, Normal Air Movement Abdomen: Normal Bowel Sounds, Soft, No Tenderness Extremities: severe atrophy of LE Assessment/Plan Assessment: This is a 62F with history of vascular dementia, s/p multiple previous CVA's ( last hospitalization at [facility] in 2016 for CVA) with residual RLE weakness and slurring of speech, on Aggrenox at home, Hep C, HLD, presents with worsening RLE weakness since 10am on 04/28/18, unable to ambulate per daughter and hypertensive. She had focal neuro deficits (decreased RLE strength with inability to ambulate) however was 4+ on exam in ED, likely resolved. Her last normal was last night, and so is out of the window for tPA. CVA while on aggrenox: Patient sustained an acute small lacunar stroke extending from the right villegas radiate towards the right operculum. Focus of petechial hemorrhage. Patient has history of multiple CVAs. -continue Aggrenox -continue Atorvastatin 40m Hypokalemia (resolved) On presentation had potassium of 3.1 today potassium 4.0 Uncontrolled hypertension Admission blood pressure as high as 220/108, BP has come down but SBP remains between 130-150s -Increase lisinopril to 40 mg Code Status: Full Diet: Regular DVT PPx: Aggrenox Problem List: 1. TIA (transient ischemic attack) Pain Ratin Pain Location: n/a Pain Goal: Remain pain free Pain Plan: tylenol Tomorrow's Labs & Rationales: none Richard Villarreal MDmainorkisha 05/01/18 1339: Attending MD Review Statement Attending Statement Attending MD Statement: examined this patient, discuss w/resident/PA/ACCOUNTANT, agreed w/resident/PA/ACCOUNTANT, reviewed EMR data (avail), discussed with nursing, discussed with case mgmt, amended to note Attending Assessment/Plan: Patient seen and examined. 62-year-old female with history of known vascular dementia. She frequently requires assistance for most activities of daily living. Was found by family unable to get up with left-sided weakness. She was also not as responsive at baseline. MRI reveals small acute lacunar infarct extending from the right villegas radiata towards the right operculum. Small punctate infarct involving the right thalamus possibly focus of petechial hemorrhage multiple progressive foci of susceptibility infarct within the deep ramos nuclei bilateral cerebral hemispheres. Most likely reflecting chronic hypertensive petechial microhemorrhages. Chronic lacunar infarcts involving the brainstem and cerebellar hemispheres. Recommendations: Discharge planning to half-way facility for short-term rehabilitation. Continue antiplatelet therapy with Aggrenox. No additional benefit in switching patient to Plavix. Carotid Doppler has been deferred to the outpatient setting. She is not a candidate for invasive procedures given her dementia. No erythema has been detected here on telemetry monitoring. An echocardiogram will evaluate for any intracardiac thrombus however she will not be due to receive any full dose anticoagulation due to her microhemorrhages. In view of this the echocardiogram may be done in the outpatient setting. Patient may be discharged once a bed becomes available. Recommend the family should engage in goals of care discussion with patient's primary care provider as an outpatient.
--- NOTE | 2018-05-01 12:00 | Discharge Summary ---
Visit Information Visit Dates Admission Date: 04/28/18 Discharge Date: 05/02/18 Hospital Course Course Attending Physician: Morgan Villarreal MD Primary Care Physician: June Rendon APRN [facility] Course: This is a 62F with history of vascular dementia, s/p multiple previous CVA's ( last hospitalization at [place] in 2016 for CVA) with residual RLE weakness and slurring of speech, on Aggrenox at home, Hep C, HLD, presents with worsening RLE weakness since 10am this morning, unable to ambulate per daughter and hypertensive. As she has baseline dementia, this is hypertensive urgency until proven otherwise. She had focal neuro deficits (decreased RLE strength with inability to ambulate) however was 4+ on exam in ED, likely resolved. Her last normal was last night, and so is out of the window for tPA. CT head negative; MRI ordered but not completed. Patient was admitted to the telemetry floor and following issues were addressed; 1. CVA while on aggrenox: Patient sustained an acute small lacunar stroke extending from the right villegas radiate towards the right operculum. Patient has history of multiple CVAs. Neurology consult was called who recommended continuing Aggrenox and atorvastatin. Patient was not a candidate for full anticoagulation with the microhemorrhages seen on MRI. Patient was evaluated by PT and recommended STR. 2. Hypokalemia (resolved) On presentation had potassium of 3.1. Potassium was monitored and repleted accordingly. K level was 4.0 at the time of discharge. 3. Uncontrolled hypertension On Admission patients blood pressure was as high as 220/108, her home medications were continued with adequate response. BP was stable at the time of discharge Allergies: Coded Allergies: NO KNOWN ALLERGIES (08/22/16) Significant Procedures: CT HEAD WO IV CONTRAST IMPRESSION: No evidence for acute intracranial injury. Stable appearance of the brain. XRY-PORTABLE CHEST XRAY IMPRESSION: No evidence for acute disease. MRI-HEAD W/O KOLBY IMPRESSION: - There is a small acute lacunar infarct extending from the right villegas radiata towards the right operculum. - There is a small punctate focus of susceptibility artifact within the anteromedial aspect of the inferior right thalamus that in retrospect exhibits mildly increased density on yesterday's head CT, possibly a focus of petechial hemorrhage that is stable on MRI and that can be followed with noncontrast head CT. - There are progressive extensive T2 signal changes throughout the supratentorial white matter including the anterior temporal pole white matter and the external capsules as well as the corpus callosum. Differential considerations include advanced chronic microangiopathy, CADASIL, and demyelinating disease. - Multiple progressive foci of susceptibility artifact within the deep ramos nuclei in the periphery of the left greater than right cerebral hemisphere that most likely reflect chronic hypertensive petechial microhemorrhages. Amyloid considered less likely given the patient's age. - There are chronic lacunar infarcts within the deep ramos nuclei bilaterally, the brainstem, and the cerebellar hemispheres. - Progressive global cerebral volume loss. Covering provider has been paged with these findings at 1:45 PM on 04/29/2018. XRY-HIP 2-3 VIEWS, RIGHT IMPRESSION: This examination is significantly limited by patient positioning with no definite acute osseous findings identified. There are degenerative changes within the lower lumbar spine. Arterial atherosclerotic calcification. Disposition Summary Disposition Principal Diagnosis: CVA(Acute small lacunar stroke) Additional Diagnosis: Petechial Hemorrhage Hypokalemia Uncontrolled HTN Discharge Disposition: SNF Discharge Instructions General Discharge Information Code Status: Full Code Patient's Diet: Regular Patient's Activity: As tolerated Follow-Up Instructions/Appts: Patient advised to follow-up with her PCP and neurologist within a week after discharge. Monitor blood pressure closely. Obtain echocardiogram and carotid Doppler, follow-up results of patient's primary care provider. Medications at Discharge Discharge Medications: Continue taking these medications: Dipyridamole W/ Aspirin (Aggrenox 25 MG-200 MG Capsule) 25 MG-200 MG CPMP.12HR 1 Capsule ORAL TWICE DAILY Comments: Last Taken: 05/02/18 Time: 10:00 AM Sertraline HCl (Sertraline HCl) 50 MG TABLET 1 Tablet ORAL DAILY Comments: NOT GIVEN IN HOSPITAL Lisinopril (Lisinopril) 30 MG TABLET 1 Tablet ORAL DAILY Qty = 90 Comments: Last Taken: 05/02/18 Time: 10:00 AM Atorvastatin Calcium (Atorvastatin Calcium) 40 MG TABLET 1 Tablet ORAL DAILY Qty = 90 Comments: Last Taken: 05/02/18 Time: 10:00 AM Lactose-Reduced Food (Ensure Liquid) 237 ML LIQUID 237 [place]iliters ORAL TWICE DAILY Qty = 18381 Comments: NOT GIVEN IN HOSPITAL Copies To: Atul PHELPS,Melvin Hannah; June Rendon APRN Attending MD Review Statement Documenting Attending: Morgan Villarreal MD Other Findings: Medically stable to discharge today.
--- NOTE | 2018-05-01 12:54 | Patient Discharge Instructions ---
Discharge Instructions General Discharge Information You were seen/treated for: Stroke You had these procedures: No procedures were performed during current visit Watch for these problems: Fever, chest pain, shortness of breath, palpitations Special Instructions: Please follow-up with your PCP, take medications as directed. Please follow-up with a neurologist Diet Continue normal diet: Yes (dianna) Recommended Diet: Regular Acute Coronary Syndrome Inclusion Criteria At DC or during hospital stay patient has or had the following: ACS DIAGNOSIS No Discharge Core Measures Meds if any: Prescribed or Continued at Discharge Meds if any: NOT Prescribed or Continued at Discharge Congestive Heart Failure Inclusion Criteria At DC or during hospital stay patient has or had the following: CHF DIAGNOSIS No Discharge Core Measures Meds if any: Prescribed or Continued at Discharge Meds if any: NOT Prescribed or Continued at Discharge Cerebrovascular accident Inclusion Criteria At DC or during hospital stay patient has or had the following: Discharge Core Measures Meds if any: Prescribed or Continued at Discharge Antithrombotic No Statin (required if LDL =>70) Yes Anticoagulant Yes Meds if any: NOT Prescribed or Continued at Discharge Venous thromboembolism Inclusion Criteria VTE Diagnosis No VTE Type NONE VTE Confirmed by (Test) NONE Discharge Core Measures - Per Current guidelines, there needs to be overlap - treatment for the first 5 days of Warfarin therapy. - If discharged on Warfarin prior to 5 days of - overlap therapy, the patient will need to be - assessed for post discharge needs including - *Post discharge parental anticoagulation - *Warfarin and/or parental anticoagulation education - *Follow up date to check INR post discharge At least 5 days overlap therapy as Inpatient No Meds if any: Prescribed or Continued at Discharge Note: Overlap Therapy is Warfarin and Anticoagulant Meds if any: NOT Prescribed or Continued at Discharge
[2018-05-01 14:40] VITALS: BP 150/86
[2018-05-01 22:17] VITALS: BP 126/84
--- NOTE | 2018-05-02 07:14 | PN- Housestaff ---
IshaanVioletaries 05/02/18 0714: Subjective Follow-up For: Stroke Subjective: Patient is in normal sinus rhythm overnight, heart rate ranging between 60-92. Patient has no complaint of this morning. Review of Systems Constitutional: Denies: chills, diaphoresis, fever. Objective Last 24 Hrs of Vital Signs/I&O Vital Signs Date Time Temp Pulse Resp B/P B/P Pulse O2 O2 Flow FiO2 Mean Ox Delivery Rate 05/02 1009 86 138/72 05/02 0803 98.4 86 20 138/72 98 05/01 2353 Room Air 05/01 2217 98.6 79 22 126/84 97 05/01 1440 97.8 90 20 150/86 98 05/01 1144 Room Air Intake & Output 05/02 1600 05/02 0800 05/02 0000 Intake Total 50 Output Total Balance 50 Intake, Oral 50 Number 1 Bowel Movements Patient 102 lb Weight Physical Exam General Appearance: Alert, Oriented X3, Cooperative Cardiovascular: Regular Rate, Normal S1, Normal S2 Lungs: Clear to Auscultation, Normal Air Movement Abdomen: Normal Bowel Sounds, Soft, No Tenderness Neurological: Sensation Intact, Cranial Nerves 3-12 NL Assessment/Plan Assessment: This is a 62F with history of vascular dementia, s/p multiple previous CVA's ( last hospitalization at [place] in 2016 for CVA) with residual RLE weakness and slurring of speech, on Aggrenox at home, Hep C, HLD, presents with worsening RLE weakness since 10am on 04/28/18, unable to ambulate per daughter and hypertensive. She had focal neuro deficits (decreased RLE strength with inability to ambulate) however was 4+ on exam in ED, likely resolved. Her last normal was last night, and so is out of the window for tPA. CVA while on aggrenox: Patient sustained an acute small lacunar stroke extending from the right villegas radiate towards the right operculum. Focus of petechial hemorrhage. Patient has history of multiple CVAs. -continue Aggrenox -continue Atorvastatin 40m Hypokalemia (resolved) On presentation had potassium of 3.1 today potassium 4.0 Uncontrolled hypertension Admission blood pressure as high as 220/108, BP has come down but SBP remains between 130-150s -continue lisinopril to 40 mg Code Status: Full Diet: Regular DVT PPx: Aggrenox Patient will be discharged to [place] for short-term rehabilitation patient will continue on Aggrenox, atorvastatin 40 mg, lisinopril 40 mg. Carotid Doppler and echocardiogram were deferred inpatient, patient will follow PCP and neurologist for further evaluation Problem List: 1. CVA (cerebral vascular accident) Pain Ratin Pain Location: n/a Pain Goal: Remain pain free Pain Plan: tylenol Tomorrow's Labs & Rationales: none Morgan Villarreal MD 05/02/18 1045: Attending MD Review Statement Attending Statement Attending MD Statement: examined this patient, discuss w/resident/PA/SURGEON PARTNER, agreed w/resident/PA/SURGEON PARTNER, reviewed EMR data (avail), discussed with nursing, discussed with case mgmt, amended to note Attending Assessment/Plan: Patient seen and examined. Resting comfortably not in any acute distress. No issues overnight reported by nursing staff. Is a frail lady is able to communicate very low tones. He reports no discomfort at present. She is medically stable to be discharged and is currently awaiting bed in a alf facility. He is to follow-up with an echocardiogram and carotid Doppler as an outpatient. Given her dementia she is unlikely candidate for any aggressive intervention. Blood pressure was elevated in the 200s on presentation. She was continued on home dose of lisinopril at 30 mg daily. Blood pressure improved significantly on that regimen. She will continue on her home dose of lisinopril upon discharge.
[2018-05-02 08:03] VITALS: BP 138/72
[2018-05-02 11:44] VITALS: BP 138/72
== END 2018-05-02 13:00 | DRG 45 ==
LOC: ERH 16:31 → ERHI 18:51 → 1NO 18:51 → ENRESERV 19:08 → ENTRNSPT 20:41 → EDTRNSPTSTS 20:47 → EDTRNSPT 20:47 → CMPTRNSPT 21:07 → 1NO 21:12
PROVIDERS: Preventive Medicine Public Health & General Preventive Medicine; Student in an Organized Health Care Education/Training Program
DX: I63.9 Cerebral infarction, unspecified (principal); I16.0 Hypertensive urgency; F01.50 Vascular dementia, unspecified severity, without behavioral disturbance, psychotic disturbance, mood disturbance, and anxiety; I69.351 Hemiplegia and hemiparesis following cerebral infarction affecting right dominant side; B18.2 Chronic viral hepatitis C; E87.6 Hypokalemia; I34.0 Nonrheumatic mitral (valve) insufficiency; E78.5 Hyperlipidemia, unspecified; I10 Essential (primary) hypertension; R23.3 Spontaneous ecchymoses
CPT/HCPCS: 1NP; 1NSP; 70551; 36415; 36592; 71045; 73502-RT; 82436; 93005; 93010; 97116-GO; 97162-GP; 97530-GO; 99291